=== PATIENT | male | born 1955 | race Caucasian/White ===

== ENCOUNTER 2023-05-23 17:19 | Inpatient (IN) | payer MEDICARE, SELFPAY ==
--- NOTE | ~2023-05-23 | XR_ITS ---
EXAMINATION: XR CHEST CLINICAL INFORMATION: Lower extremity edema COMPARISON: None available. TECHNIQUE: 2 views of the chest were obtained. FINDINGS: No significant abnormality is noted involving the heart, lungs, mediastinum, bony thorax or soft tissues. XR/XR chest 2V IMPRESSION: Unremarkable examination. No CHF.
--- NOTE | ~2023-05-23 | US_ITS ---
EXAMINATION: US VENOUS ULTRASOUND WITH DOPPLER LOWER EXTREMITY, BILATERAL CLINICAL INFORMATION: Bilateral leg edema. COMPARISON: None available. TECHNIQUE: Ultrasound of the deep veins is performed from the hip to the calf with compression sonography and color and pulse Doppler assessment. Spectral analysis with color-flow imaging is performed. FINDINGS: RIGHT: There is normal venous compression and respiratory variation and augmented flow. The visualized common femoral vein, superficial femoral vein, profunda femoral vein, popliteal vein, and the trifurcation region shows no evidence of deep venous thrombosis. There is no significant popliteal fossa cyst. The peroneal veins are not visualized secondary to body habitus. Partial visualization is made of scattered subcutaneous edema. LEFT: There is normal venous compression and respiratory variation and augmented flow. The visualized common femoral vein, superficial femoral vein, profunda femoral vein, popliteal vein, and the trifurcation region shows no evidence of deep venous thrombosis. There is no significant popliteal fossa cyst. Peroneal veins are not visualized secondary to body habitus. Partial visualization is made of scattered subcutaneous edema. If the patient's symptoms persist, followup ultrasound in 5 days 7 days might be of value to exclude proximal propagation from a non-visualized calf vein. US/US venous duplex LE BI IMPRESSION: *No evidence of deep venous thromboses within the left and right lower extremities. Of note the left and right calf veins are suboptimally visualized secondary to body habitus. *Partial visualization of bilateral lower extremity subcutaneous edema.
--- NOTE | 2023-05-23 17:32 | ED_ITS ---
HPI - General Adult General Chief complaint: GI Bleed Stated complaint: Black stools/?Ulcer Time Seen by Provider: 05/23/23 18:47 Source: patient and family Mode of arrival: ambulatory Limitations: no limitations History of Present Illness HPI narrative: 67-year-old male with a history of hypertension and chronic lower extremity swelling who presents emergency department for evaluation of 4 days of dark tarry stools. Patient states that he has been feeling tired and fatigued. He denied lightheadedness or dizziness. The patient has had chronic heel pain for approximately 3 months. He states he has been taking naproxen 220 mg every 8 hours as well as Tylenol. The family was concerned about the patient's dark stools and convince the patient apartment today for evaluation. Patient has no history of GERD, peptic ulcer disease or bleeding ulcer. He has no significant past surgical history. Patient drinks 4-5 beers per day. He denies history of delirium tremens or shakes / withdrawal symptoms when he stops drinking. Related Data Home Medications Medication Instructions Recorded Confirmed budesonide-formoterol HFA 160 2 puff inhalation BID 05/23/23 05/23/23 mcg-4.5 mcg/actuation aerosol inhaler (Symbicort) hydrochlorothiazide 25 mg tablet 25 mg PO DAILY 05/23/23 05/23/23 losartan 100 mg tablet 100 mg PO DAILY 05/23/23 05/23/23 Allergies Allergy/AdvReac Type Severity Reaction Status Date / Time lisinopril Allergy Rash Verified 05/23/23 17:32 From Augmentin Allergy Mild UNKNOWN Uncoded 05/23/23 17:32 [facility] Past Medical History [facility] Narrative: Past medical history: Hypertension. Surgical history: Vasectomy, deviated septum/nasoplasty social history: Patient does smoke cigarettes. He drinks 4-5 beers per day. He states he has never had any delirium tremens or shakes when he stops drinking. Denies drug use. Medical History (Updated 05/23/23 @ 21:36 by Augustine Reyes MD) Edema of both legs Essential hypertension Obesity Social History Social History Alcohol intake: current Alcohol intake frequency: 3 or more drinks per day Alcohol type: beer Patient Tobacco Use Status: Current everyday Tobacco user Smoked in Last 30 Days: Yes Advance Directives: No Advance Directives Information Provided: No Nutrition Risks: No Nutritional Risk Physical Exam ED Vital Signs: Vital Signs - 24 hr 05/23/23 17:33 05/23/23 18:00 05/23/23 18:51 Temperature 98.0 F 98 F Pulse Rate 97 Respiratory Rate 20 18 Blood Pressure 131/53 L 114/59 L Pulse Oximetry 96 95 Oxygen Delivery Method Room Air Room Air 05/23/23 20:17 Temperature 98.2 F Pulse Rate 99 Respiratory Rate 16 Blood Pressure 106/55 L Pulse Oximetry 92 Oxygen Delivery Method Room Air BMI result Body Mass Index 53.6 Vital signs were normal Exam: General: Awake, alert in no distress, weight 159.9 kg, BMI 53.6 kg Head: Normocephalic, atraumatic EENT: PERRL, Lids normal, sclera normal, conjunctiva normal, nose normal , ears normal, throat without erythema or exudates Neck: Supple, no adenopathy Lung: breath sounds symmetric, no wheezing, rales or rhonchi Chest: symmetric movement, nontender Heart: regular rate and rhythm, normal S1, S2 no murmurs or rubs Abdomen: soft, non-tender, nondistended, normal bowel sounds Rectal exam: No external hemorrhoids, good sphincter tone, stool was black and strongly Hemoccult positive. Back: no vertebral tenderness, no CVAT Extremities: Patient has large, symmetric, nonpitting edema Neuro: Awake, alert, oriented, normal speech, cranial nerves intact, moves all extremities symmetrically Psych: Pleasant, cooperative Course Course Course Narrative: This is a rapid medical exam: Additional HPI, ROS, PE not included below will be deferred to primary provider. Patient is a 67-year-old male presenting to the emergency department with complaint of black, tarry stool since . States that he has severe pain from heel spurs, and has been using at lease 8 tabs of 220mg naproxen daily, also 650mg of Tylenol multiple times per day for the past 3 mos. Has appt with PCP on 05/27 but states I couldn't wait. Denies abdominal pain, nausea, vomiting. Also reports bilat lower extremity swelling for years, was not started on any medications for this by PCP. Plan: labs, CXR Medications Administered Generic Name Dose Route Start Last Admin Trade Name Freq PRN Reason Stop Dose Admin Thiamine HCl 100 mg/ Sodium 101 mls @ 202 mls/hr 05/23/23 21:15 05/23/23 23:10 Chloride IV Infused DAILY HENRY Infusion Discontinued Medications Generic Name Dose Route Start Last Admin Trade Name Freq PRN Reason Stop Dose Admin Pantoprazole Sodium 80 mg 05/23/23 19:27 05/23/23 19:38 Pantoprazole Sodium 40 Mg/10 Ml Vial IVPUSH 05/23/23 19:28 80 mg ONCE ONE Administration Medical Decision Making Medical Decision Making MDM Narrative: 67-year-old male with a history of hypertension, daily alcohol use, taking naproxen 3 times a day for heel pain who presents emergency department for evaluation of 4 days of black stools and fatigue above his baseline. Vital signs were normal. Abdominal exam was nontender. Rectal exam did reveal dark black stool which was strongly Hemoccult positive. Differential diagnosis: ?Includes but is not limited to peptic ulcer disease, gastritis, gastric ulcer, duodenal ulcer, anemia, electrolyte abnormality Following evaluation was ordered: CBC, CMP, BNP, acetaminophen level, PT/INR, occult stool, chest x-ray two view, type and screen, Patient was initially treated with the following: IV insert, pantoprazole 80 mg IV Course: 1941 My impression patient's laboratory evaluation is as follows: WBC elevated 12,300. Macrocytic anemia with an H&H of 11.2 and 34.6 with an MCV of 100.3- suspect that the elevated MCV is secondary to his alcohol use disorder and anemia secondary to upper GI bleed. BUN was elevated at 41 with a normal creatinine of 0.76-again I suspect that the elevated BUN is due to upper GI bleed LFTs were normal. BNP was normal. Acetaminophen level was 6. At this time, I a concerned that the patient may have a significant upper GI bleed and required admission to trend his H&H and to get an urgent gastroenterology consult. I did discuss the patient's presentation over tiger text with the covering ship self defense system mk1 operator, Dr. Beal . She did agreed with admission and I put in a consult for her as well. I also discuss the patient's presentation over tiger text with the covering hospitalist, Dr. Jon Reyes and the patient will be admitted for further management. 22:53 Reported to large black bowel movements Patient 4 hours H&H was 9.8 and 29.6 compared to 12.2 and 34.6 which is a significant drop suggested the patient had approximately a 1-2 units blood loss in 4 hours. I did discuss this with the covering hospitalist and the patient was ordered to get 2 units of packed red blood cell over 2 hours Admission/Observation Consideration of admission/observation: Escalation of care including admission/observation considered Consult Healthcare Provider Management of the patient was discussed with: Hospitalist and Mandrel Press Hand (Sourcing Consultant) Lab Data MDM Lab Attestation statement: I reviewed the patient's lab results. 05/23/23 21:54 05/23/23 17:49 Labs: Lab Results 05/23/23 05/23/23 Range/Units 17:49 19:11 WBC 12.3 H (4.8-10.8) X10*3/uL RBC 3.45 L (4.60-5.80) X10*6/uL Hgb 11.2 L (14.0-18.0) g/dl Hct 34.6 L (42.0-52.0) % MCV 100.3 H (80.0-98.0) fL MCH 32.5 (27.0-33.0) pg MCHC 32.4 (31.0-36.0) g/dl RDW 13.5 (11.0-16.0) % Plt Count 258 (160-400) X10*3/uL MPV 10.1 (9.4-12.4) fL Immature Gran % (Auto) 1.0 H (0.0-0.4) % Neut % (Auto) 70.6 (45-73) % Lymph % (Auto) 14.3 L (20-40) % Bacon % (Auto) 11.3 H (2-11) % Eos % (Auto) 2.0 (0-4) % Baso % (Auto) 0.8 (0-2) % Lymph # (Auto) 1.8 (1.2-4.9) X10*3/uL Bacon # (Auto) 1.4 H (0.1-1.2) X10*3/uL Eos # (Auto) 0.3 (0.0-0.4) X10*3/uL Baso # (Auto) 0.1 (0.0-0.2) X10*3/uL Abs Immat Gran (auto) 0.12 H (0.00-0.03) X10*3/uL Absolute Neuts (auto) 8.7 H (2.0-8.3) x10*3/uL Absolute Nucleated RBC 0.000 (0.0-0.012) X10*3/uL Nucleated RBC % (auto) 0.0 (0.0-0.2) /100WBC PT 12.1 (11.1-13.3) SEC INR 1.0 (0.9-1.1) Sodium 138 (135-145) mmol/L Potassium 4.4 (3.3-5.1) mmol/L Chloride 103 (96-108) mmol/L Carbon Dioxide 27 (22-29) mmol/L Anion Gap 12 (12-20) BUN 41 H (9-16) mg/dL Creatinine 0.76 (0.5-1.4) mg/dL Estim Creat Clear Calc 143.9 Estimated GFR > 60 Random Glucose 90 (60-115) mg/dL Calcium 9.3 (8.4-10.2) mg/dL Total Bilirubin 0.5 (0.0-1.0) mg/dL AST 21 (5-37) U/L ALT 24 (0-40) U/L Alkaline Phosphatase 87 (39-117) U/L B-Natriuretic Peptide 41 (<100) pg/mL Total Protein 6.9 (6.5-8.0) g/dL Albumin 3.8 (3.5-5.0) g/dL Stool Occult Blood POSITIVE (NEGATIVE) Acetaminophen 6 (<30) mcg/mL Independent Interpretation I performed an independent interpretation of an: Plain X-Ray Interpretation: My independent interpretation patient's two view chest x-ray is as follows: No acute disease Radiology Impression Discussion of test interpretation with radiology: I have reviewed the radiologist's reading. Radiologist Impression: XR chest 2V IMPRESSION: Unremarkable examination. No CHF. Dictated By: Shashank Cardenas MD Independent Historian Clinical information obtained from an independent historian. History obtained from or confirmed by: Spouse Chronic Conditions Patient?s care impacted by: Hypertension and Other (Alcohol use disorder) Critical Care Time Critical Care Time Critical Care Time: Yes Total Critical Care Time: 75 Attestation: Critical Care: The patient was critically ill with a high probability of imminent or life threatening deterioration. I spent greater than 30 minutes of discontinuous time evaluating the patient,delivering critical care at the bedside, discussing and evaluating pertinent data with consultants. Critical care time does not include time spent performing separately billable procedures or teaching. Total time spent performing critical care was 35 minutes. Discharge Plan Discharge Clinical Impression: Acute upper gastrointestinal bleeding, Dark stools, Alcohol use disorder Anemia Qualifiers: Anemia type: unspecified type Qualified Code(s): D64.9 - Anemia, unspecified Patient Disposition: Admitted As Inpatient
[2023-05-23 17:33] VITALS: BP 131/53; PULSE 97; RESP 20; TEMP 36.7; O2SAT 96; BMI 53.6
[2023-05-23 17:55] LABS: MANUAL DIFF FLAG NO
[2023-05-23 18:00] VITALS: RESP 18; TEMP 36.6; O2SAT 95
[2023-05-23 18:01] LABS: Prothrombin Time 12.1 SEC (11.1-13.3)
[2023-05-23 18:12] LABS: Acetaminophen LAB 6 mcg/mL (<30); Alanine Aminotransferase 24 U/L (0-40); Albumin Level 3.8 g/dL (3.5-5.0); Alkaline Phosphatase 87 U/L (39-117); Anion Gap 12 (12-20); Aspartate Amino Transferase 21 U/L (5-37); Basophils Absolute Auto 0.1 X10*3/uL (0.0-0.2); Basophils Percent Auto 0.8 % (0-2); Bilirubin Total 0.5 mg/dL (0.0-1.0); Blood Urea Nitrogen 41 mg/dL (9-16); Calcium 9.3 mg/dL (8.4-10.2); Carbon Dioxide 27 mmol/L (22-29); Chloride 103 mmol/L (96-108); Creatinine Clr Calc Pharmacy 143.9; Eosinophils Absolute Auto 0.3 X10*3/uL (0.0-0.4); Estimated Glomerular Filt Rate > 60; Glucose Random 90 mg/dL (60-115); Hematocrit 34.6 % (42.0-52.0); Hemoglobin 11.2 g/dl (14.0-18.0); Imm Gran Abs Auto 0.12 X10*3/uL (0.00-0.03); Lymphocytes Absolute Auto 1.8 X10*3/uL (1.2-4.9); Lymphocytes Percent Auto 14.3 % (20-40); Mean Corpuscular HGB Conc 32.4 g/dl (31.0-36.0); Mean Corpuscular Hemoglobin 32.5 pg (27.0-33.0); Mean Corpuscular Volume 100.3 fL (80.0-98.0); Mean Platelet Volume 10.1 fL (9.4-12.4); Monocytes Absolute Auto 1.4 X10*3/uL (0.1-1.2); Monocytes Percent Auto 11.3 % (2-11); Neutrophils Absolute Auto 8.7 x10*3/uL (2.0-8.3); Neutrophils Percent Auto 70.6 % (45-73); Platelet Count 258 X10*3/uL (160-400); Potassium 4.4 mmol/L (3.3-5.1); Red Blood Count 3.45 X10*6/uL (4.60-5.80); Red Cell Distribution Width 13.5 % (11.0-16.0); Sodium 138 mmol/L (135-145); Total Protein 6.9 g/dL (6.5-8.0); White Blood Count 12.3 X10*3/uL (4.8-10.8)
[2023-05-23 18:16] LABS: B Type Natriuretic Peptide 41 pg/mL (<100)
[2023-05-23 18:51] VITALS: BP 114/59
[2023-05-23 19:24] LABS: OBS Int Ctl Valid YES; OBS1 POSITIVE (NEGATIVE)
[2023-05-23] MEDS: Pantoprazole Sodium 40 MG/10 ML VIAL 80 MG IVPUSH (19:38)
[2023-05-23 20:17] VITALS: BP 106/55; PULSE 99; RESP 16; TEMP 36.8; O2SAT 92
--- NOTE | 2023-05-23 20:57 | P.HPHOSP_ITS ---
History of Present Illness Date of Service: 05/23/23 Attending physician on admission: Augustine Reyes Chief Complaint: Black stools Feliberto Monterroso is a 67 years old man with past medical history significant for essential hypertension, COPD and obesity presents to the emergency department complaining of black stools since . He has been taking multiple doses NSAIDs over the last months for left heel pain. Denies use of blood thinners. He denied any associated abdominal pain, nausea, vomiting, dizziness or shortness breath. He also denied chest pain. He does have marked edema to lower extremities chronically. He denied any history heart failure, GI bleeding/PUD or liver disease. He does abuse alcohol -drinks 4-5 alcoholic beverage, smoke tobacco -about half pack daily. Denies illicit drug use. In the ED, he was found to have stable vital signs. Workup is remarkable for leukocytosis, anemia (Hgb 11.2) and elevated BUN. Creatinine is 0.76. BNP is normal. There are no electrolyte imbalances or acidosis. CXR is negative. ED tx: Pantoprazole 80 mg IV. Review of Systems 2 Review of Systems: All 12 systems were reviewed and normal except as noted in HPI. [facility] Medical History (Updated 05/23/23 @ 21:36 by Augustine Reyes MD) Edema of both legs Essential hypertension Obesity Social History Alcohol intake: current Alcohol intake frequency: 3 or more drinks per day Alcohol type: beer Smoked in Last 30 Days: Yes Advance Directives: No Advance Directives Information Provided: No Meds Allergies Allergy/AdvReac Type Severity Reaction Status Date / Time lisinopril Allergy Rash Verified 05/23/23 17:32 From Augmentin Allergy Mild UNKNOWN Uncoded 05/23/23 17:32 Active Medications: Current Medications Sodium Chloride (Ns) 1,000 mls @ 100 mls/hr IVCONT .Q10H [facility] Losartan Potassium (Losartan Potassium 50 Mg Tablet) 100 mg PO DAILY [facility]ENRY; Protocol Pantoprazole Sodium (Pantoprazole Sodium 40 Mg/10 Ml Vial) 40 mg IVPUSH Q12H [facility]RY Sodium Chloride (0.9 % Sodium Chloride Flush 3 Ml Syringe) 3 ml IVFLUSH QSHIFT [facility] Home Medications Medication Instructions Recorded Confirmed Last Taken Type budesonide-formoterol HFA 160 2 puff inhalation BID 05/23/23 05/23/23 Unknown History mcg-4.5 mcg/actuation aerosol inhaler (Symbicort) hydrochlorothiazide 25 mg tablet 25 mg PO DAILY 05/23/23 05/23/23 Unknown History losartan 100 mg tablet 100 mg PO DAILY 05/23/23 05/23/23 Unknown History Physical Exam 2 Vital Signs and Narrative: Vital Signs: Last Vital Signs Temp 98.2 F 05/23/23 20:17 Pulse 99 05/23/23 20:17 Resp 16 05/23/23 20:17 BP 106/55 L 05/23/23 20:17 Pulse Ox 92 05/23/23 20:17 O2 Del Method Room Air 05/23/23 20:17 BMI result Body Mass Index 53.6 Constitutional - Awake and Alert, No apparent distress. Pleasant. Cooperative. Obese. HEENT - Pupils equally round. Normal sclerae. Heart - S1S2, RRR. (+) murmur. Lungs - Normal lung expansion, Normal respiratory effort, No respiratory distress, CTA bilaterally Abdomen - nontender Extremities - Marked edema to lower extremity (hardening skin). Skin - Warm/Dry Neurological - Alert & oriented x3. No acute focal weakness. Normal speech. Psychological - Appropriate affect Results Labs 05/23/23 17:49 05/23/23 17:49 Labs: Laboratory Results - last 24 hr 05/23/23 05/23/23 17:49 19:11 MCV 100.3 H MCH 32.5 MCHC 32.4 RDW 13.5 Plt Count 258 MPV 10.1 Immature Gran % (Auto) 1.0 H Neut % (Auto) 70.6 Lymph % (Auto) 14.3 L Hill % (Auto) 11.3 H Eos % (Auto) 2.0 Baso % (Auto) 0.8 Lymph # (Auto) 1.8 Hill # (Auto) 1.4 H Eos # (Auto) 0.3 Baso # (Auto) 0.1 Abs Immat Gran (auto) 0.12 H Absolute Neuts (auto) 8.7 H Absolute Nucleated RBC 0.000 Nucleated RBC % (auto) 0.0 PT 12.1 INR 1.0 Anion Gap 12 Estim Creat Clear Calc 143.9 Estimated GFR > 60 Random Glucose 90 Calcium 9.3 Total Bilirubin 0.5 AST 21 ALT 24 Alkaline Phosphatase 87 B-Natriuretic Peptide 41 Total Protein 6.9 Albumin 3.8 Stool Occult Blood POSITIVE Acetaminophen 6 Imaging Radiologist's Impressions: Impressions Chest X-Ray 05/23/23 17:46 IMPRESSION: Unremarkable examination. No CHF. Assessment and Plan (1) Alcohol use disorder: Status: Acute (2) Dark stools: Status: Acute (3) Anemia: Qualifiers: Anemia type: unspecified type Qualified Code(s): D64.9 - Anemia, unspecified Status: Acute (4) Acute upper gastrointestinal bleeding: Status: Acute (5) Obesity: Qualifiers: Obesity type: due to excess calories Body mass index: BMI 50.0-59.9 S erious obesity comorbidity presence: unspecified whether serious comorbidity present Obesity classification: adult class 3 (BMI >= 40) Qualified Code(s): E66.01 - Morbid (severe) obesity due to excess calories; Z68.43 - Body mass index [BMI] 50.0-59.9, adult Status: Acute (6) Essential hypertension: Status: Acute (7) Edema of both legs: Status: Acute Plan Feliberto Monterroso is a 67 years old man admitted with: * Gastrointestinal bleeding. Admit to hospitalist service. Keep NPO. IV fluids. Continue treatment with Protonix 40 mg IV twice daily. Continue to monitor H&H. Transfuse PRBC as needed. GI consult. * Hypertension. Continue losartan. Hydrochlorothiazide on hold to avoid dehydration (in the setting of GI bleeding). * COPD. Continue Symbicort (or alternative). * Morbid obesity. BMI 53.6 kg/m2. Weight loss. * Alcohol abuse. [facility] protocol. Folic acid and multivitamins. Patient needs to abstain for alcohol. * Marked bilateral leg edema. Likely due to obesity. BNP, albumin, creatinine and LFTs are normal. Patient said he is unable to elevate legs. Will consider tx with Lasix when active problems resolve. * Tobacco dependence. Nicotine gums as needed. DVT prophylaxis: SCDs Code status: Full Patient will need hospitalization for at least 2 midnights for GI bleeding evaluation and management with close monitoring of symptoms, serial H&H, IV anti reflux meds and evaluation by subspecialty for possible EGD. Quality Stroke Does the patient have a stroke diagnosis?: No VTE Prior VTE?: No VTE Risk Level:: Medical - moderate - high VTE Device Contraindication: N/A - Device Ordered VTE Drug Contraindication: Treatment Not Indicated
[2023-05-23 22:07] LABS: Hematocrit 29.6 % (42.0-52.0); Hemoglobin 9.8 g/dl (14.0-18.0)
[2023-05-23] MEDS: Thiamine HCL 100 MG in 0.9 % Sodium Chloride 100 ML 202 MG IV (22:38)
[2023-05-23 22:51] VITALS: BP 93/42; PULSE 100; RESP 16; TEMP 36.9; O2SAT 92
--- NOTE | 2023-05-23 23:47 | PC.NURSE ---
This RN attempted to verify 1 unit of PRBC bag for infusion in presence of VEL Mon. There is dark discoloration noted in the bag. Blood bank contacted and notified, 1 unit of PRBC's sent back to blood bank.
[2023-05-24] VITALS (16 sets, daily range): BP systolic 88–122; BP diastolic 24–63; PULSE 86–107; RESP 16–25; TEMP 36.1–37.1; O2SAT 84–98
--- NOTE | 2023-05-24 00:33 | PC.NURSE ---
Blood transfusion of 1 unit of PRBC's initiated via 20 G IV line in L AC, patient tolerating infusion well with no adverse reactions noted.
--- NOTE | 2023-05-24 04:34 | PC.NURSE ---
Patient transfused with 2 units of PRBC's, tolerated well, BP's remain oft 97/43-108/46, P 88-99, O2 Sat 96-98% RA. Dr. Webb updated.
[2023-05-24 05:54] LABS: Hematocrit 35.2 % (42.0-52.0); Hemoglobin 11.7 g/dl (14.0-18.0)
[2023-05-24] MEDS: 0.9 % Sodium Chloride 1,000 ML 100 ML IVCONT (06:04)
[2023-05-24 06:07] LABS: Alanine Aminotransferase 22 U/L (0-40); Albumin Level 3.7 g/dL (3.5-5.0); Alkaline Phosphatase 76 U/L (39-117); Anion Gap 11 (12-20); Aspartate Amino Transferase 22 U/L (5-37); Bilirubin Total 1.5 mg/dL (0.0-1.0); Blood Urea Nitrogen 48 mg/dL (9-16); Calcium 9.3 mg/dL (8.4-10.2); Carbon Dioxide 27 mmol/L (22-29); Chloride 104 mmol/L (96-108); Creatinine Clr Calc Pharmacy 117.6; Estimated Glomerular Filt Rate > 60; Glucose Random 96 mg/dL (60-115); Potassium 3.9 mmol/L (3.3-5.1); Sodium 138 mmol/L (135-145); Total Protein 6.5 g/dL (6.5-8.0)
[2023-05-24 06:50] LABS: Folate 7.3 ng/mL (> or = 4.0); Vitamin B12 432 pg/mL (200-900)
--- NOTE | 2023-05-24 08:04 | PHA.MEDREC ---
Pharmacy Consult ? Medication Reconciliation Pharmacy has completed the medication reconciliation. Spoke with patient in the ED. Patient was able to list all medications. Patient states he was taking lots of Naproxen but stopped on 05/21/23 when he found blood in his stool and is now taking tylenol.
[2023-05-24] MEDS: Fluticasone/Vilanterol 200/25 BLST.W.DEV 1 PUFF INHALE (08:20)
--- NOTE | 2023-05-24 09:07 | PC.NURSE ---
from home, reports 4 days of dark tarry stools, feeling tired and fatigued, denied lightheadedness/dizziness, has chronic heel pain x3 months, has been taking naproxen 220 mg every 8 hours and Tylenol, hx COPD-no home O2. Hgb-11.2 Hct-34.6 Got 2u PBRC -Hct=11.7 Hct=35.2. NS 75 ml/h. 20 LAC. NPO since midnight, Endoscopy today. A+O x3. Sleeps in recliner. Pt being transported to room 478 by clinical trial educator.
[2023-05-24] MEDS: Thiamine HCL 100 MG in 0.9 % Sodium Chloride 100 ML 202 MG IV (10:14)
[2023-05-24] MEDS: Pantoprazole Sodium 40 MG/10 ML VIAL IVPUSH ×2 (10:14→20:10)
--- NOTE | 2023-05-24 10:37 | P.CONAN_ITS ---
HPI - Anesthesia Eval Consult details Narrative: GI bleed PMFSH Active Problems Active Problems: All Active Problems (Updated 05/23/23 @ 21:36 by Augustine Reyes MD) Edema of both legs (Acute) Essential hypertension (Acute) Obesity (Acute) Alcohol use disorder (Acute) Dark stools (Acute) Anemia (Acute) Acute upper gastrointestinal bleeding (Acute) Past Medical History Medical History (Updated 05/23/23 @ 21:36 by Augustine Reyes MD) Edema of both legs Essential hypertension Obesity Family History Family history of problems with anesthesia: No Surgical History History of Problems with Anesthesia: No Social History Social History Household Members: None Housing: Apartment Do you presently have visiting nurse or other home services: No Alcohol intake: current Alcohol intake frequency: 3 or more drinks per day Alcohol type: beer Patient Tobacco Use Status: Current everyday Tobacco user Tobacco use type: Cigarette Meds Allergies Allergy/AdvReac Type Severity Reaction Status Date / Time lisinopril Allergy Rash Verified 05/23/23 17:32 From Augmentin Allergy Mild UNKNOWN Uncoded 05/23/23 17:32 Active Medications: Current Medications Albuterol Sulfate (Albuterol Sulfate 90 Mcg 8 Gm Inhaler) 2 puff INHALE Q4H PRN PRN Reason: Shortness Of Breath Fluticasone/Vilanterol (Fluticasone/Vilanterol 200/25 Blst.W.Dev) 1 puff INHALE RDAILY [facility] Last Admin: 05/24/23 08:20 Dose: 1 puff Folic Acid (Folic Acid 1 Mg Tablet) 1 mg PO DAILY [facility] Last Admin: 05/24/23 09:51 Dose: Not Given Sodium Chloride (Ns) 1,000 mls @ 100 mls/hr IVCONT .Q10H [facility] Last Admin: 05/24/23 06:04 Dose: 100 mls/hr Thiamine HCl 100 mg/ Sodium (Chloride) 101 mls @ 202 mls/hr IV DAILY [facility] Last Admin: 05/24/23 10:14 Dose: 202 mls/hr Losartan Potassium (Losartan Potassium 50 Mg Tablet) 50 mg PO DAILY [facility]; Protocol Last Admin: 05/24/23 09:51 Dose: Not Given Multivitamins/Vitamin C (Multivitamin Tablet) 1 tab PO DAILY [facility] Last Admin: 05/24/23 09:51 Dose: Not Given Nicotine Polacrilex (Nicotine Polacrilex 2 Mg Gum) 2 mg BUCCAL Q2H PRN PRN Reason: Nicotine Cravings Pantoprazole Sodium (Pantoprazole Sodium 40 Mg/10 Ml Vial) 40 mg IVPUSH Q12H [facility] Last Admin: 05/24/23 10:14 Dose: 40 mg Sodium Chloride (0.9 % Sodium Chloride Flush 3 Ml Syringe) 3 ml IVFLUSH QSHIFT [facility] Last Admin: 05/24/23 09:51 Dose: Not Given Home Medications Medication Instructions Recorded Confirmed Last Taken Type budesonide-formoterol HFA 160 2 puff inhalation BID 05/23/23 05/23/23 Unknown History mcg-4.5 mcg/actuation aerosol inhaler (Symbicort) hydrochlorothiazide 25 mg tablet 25 mg PO DAILY 05/23/23 05/23/23 Unknown History losartan 100 mg tablet 100 mg PO DAILY 05/23/23 05/23/23 Unknown History acetaminophen 325 mg tablet 650 mg PO Q4H PRN Pain (Scale 05/24/23 05/24/23 Unkn own History Score 1-3) albuterol sulfate 90 mcg/actuation 2 puff inhalation Q4-6H PRN 05/24/23 05/24/23 Unknown History aerosol inhaler Shortness Of Breath Exam Height,Weight and Vital Signs: Height 5 ft 8 in Weight 159.9 kg Last Vital Signs Temp 96.9 F 05/24/23 08:00 Pulse 98 05/24/23 08:22 Resp 25 H 05/24/23 08:22 BP 93/52 L 05/24/23 08:00 Pulse Ox 94 05/24/23 08:00 O2 Del Method Room Air 05/24/23 08:00 Pertinent Lab Results Pertinent Lab Results: Laboratory Tests 05/23/23 05/23/23 05/23/23 17:49 19:11 21:54 WBC 12.3 H RBC 3.45 L Hgb 11.2 L 9.8 L Hct 34.6 L 29.6 L MCV 100.3 H MCH 32.5 MCHC 32.4 RDW 13.5 Plt Count 258 MPV 10.1 Immature Gran % (Auto) 1.0 H Neut % (Auto) 70.6 Lymph % (Auto) 14.3 L [place] % (Auto) 11.3 H Eos % (Auto) 2.0 Baso % (Auto) 0.8 Lymph # (Auto) 1.8 [place] # (Auto) 1.4 H Eos # (Auto) 0.3 Baso # (Auto) 0.1 Abs Immat Gran (auto) 0.12 H Absolute Neuts (auto) 8.7 H Absolute Nucleated RBC 0.000 Nucleated RBC % (auto) 0.0 PT 12.1 INR 1.0 Sodium 138 Potassium 4.4 Chloride 103 Carbon Dioxide 27 Anion Gap 12 BUN 41 H Creatinine 0.76 Estim Creat Clear Calc 143.9 Estimated GFR > 60 Random Glucose 90 Calcium 9.3 Magnesium Total Bilirubin 0.5 AST 21 ALT 24 Alkaline Phosphatase 87 B-Natriuretic Peptide 41 Total Protein 6.9 Albumin 3.8 Vitamin B12 Folate Stool Occult Blood POSITIVE Acetaminophen 6 Blood Type Antibody Screen Crossmatch 05/23/23 05/24/23 22:29 05:49 WBC RBC Hgb 11.7 L Hct 35.2 L MCV MCH MCHC RDW Plt Count MPV Immature Gran % (Auto) Neut % (Auto) Lymph % (Auto) [place] % (Auto) Eos % (Auto) Baso % (Auto) Lymph # (Auto) [place] # (Auto) Eos # (Auto) Baso # (Auto) Abs Immat Gran (auto) Absolute Neuts (auto) Absolute Nucleated RBC Nucleated RBC % (auto) PT INR Sodium 138 Potassium 3.9 Chloride 104 Carbon Dioxide 27 Anion Gap 11 L BUN 48 H Creatinine 0.93 Estim Creat Clear Calc 117.6 Estimated GFR > 60 Random Glucose 96 Calcium 9.3 Magnesium 2.0 Total Bilirubin 1.5 H AST 22 ALT 22 Alkaline Phosphatase 76 B-Natriuretic Peptide Total Protein 6.5 Albumin 3.7 Vitamin B12 432 Folate 7.3 Stool Occult Blood Acetaminophen Blood Type O Positive Antibody Screen NEGATIVE Crossmatch See Detail Airway Mallampati Class: II TM Dist: >3cm Neck ROM: Full Loose/Missing/Broken Teeth: No Heart: RRR Lungs: CTA Assessment and Plan Assessment Anesthesia Assessment: Anesthesia Plan Discussed and Chart Reviewed Final Anesthetic Review Family History of Problems with Anesthesia: No History of Problems with Anesthesia: No NPO: Yes ASA Class: III and Emergency Final Preanesthetic Review: No Changes in Pt Med Stat, Meds/Allgs Chart Reviewed, Consent Obtained/Reviewed and Anes Risks/Benef Reviewed Patient Risk: High Procedure Risk: Low Anesthetic Plan Anesthetic Plan: MAC: Disposition: Standard PACU
--- NOTE | 2023-05-24 10:54 | PM.GICN ---
History of Present Illness Data of Consult Service Date: 05/24/23 Requesting physician: Lavell Lipscomb Primary Care Provider: Unknown Physician HPI Reason for consult: UGIB This is a 67-year-old gentleman with past medical history morbid obesity BMI of 53, alcohol use disorder, hypertension, COPD, smoking, who presented to the hospital for multiple episodes of melena. Patient reports that he has been taking at least 8 pills of naproxen every day for the past few months for painful heel spurs. On , he started noticing epigastric discomfort with 2 episodes of loose black stools, which progressed the next day. He was therefore advised by his family members to come to the ER. On arrival to the ER, his pressures were soft. Initial hemoglobin was 11.2 which then dropped further to 9.8. BUN to creatinine ratio was high. He was transfused 2u PRBC overnight and started on IV protonix. In addition, patient also smokes 10-15 cigarettes a day, and drinks alcohol 4-5 drinks every day. Platelet count normal. Review of Systems Review of Systems: Yes all other systems are reviewed and are negative [facility] Past Medical History Medical History (Updated 05/24/23 @ 11:34 by Louann Beal MD) Edema of both legs Essential hypertension Obesity Social History Social History Household Members: None Housing: Apartment Do you presently have visiting nurse or other home services: No Alcohol intake: current Alcohol intake frequency: 3 or more drinks per day Alcohol type: beer Patient Tobacco Use Status: Current everyday Tobacco user Tobacco use type: Cigarette Meds Allergies Allergy/AdvReac Type Severity Reaction Status Date / Time lisinopril Allergy Rash Verified 05/23/23 17:32 From Augmentin Allergy Mild UNKNOWN Uncoded 05/23/23 17:32 Active Medications: Current Medications Albuterol Sulfate (Albuterol Sulfate 90 Mcg 8 Gm Inhaler) 2 puff INHALE Q4H PRN PRN Reason: Shortness Of Breath Fluticasone/Vilanterol (Fluticasone/Vilanterol 200/25 Blst.W.Dev) 1 puff INHALE RDAILY [facility] Last Admin: 05/24/23 08:20 Dose: 1 puff Folic Acid (Folic Acid 1 Mg Tablet) 1 mg PO DAILY [facility] Last Admin: 05/24/23 09:51 Dose: Not Given Sodium Chloride (Ns) 1,000 mls @ 100 mls/hr IVCONT .Q10H [facility] Last Admin: 05/24/23 06:04 Dose: 100 mls/hr Thiamine HCl 100 mg/ Sodium (Chloride) 101 mls @ 202 mls/hr IV DAILY [facility] Last Admin: 05/24/23 10:14 Dose: 202 mls/hr Losartan Potassium (Losartan Potassium 50 Mg Tablet) 50 mg PO DAILY [facility]; Protocol Last Admin: 05/24/23 09:51 Dose: Not Given Multivitamins/Vitamin C (Multivitamin Tablet) 1 tab PO DAILY [facility] Last Admin: 05/24/23 09:51 Dose: Not Given Nicotine Polacrilex (Nicotine Polacrilex 2 Mg Gum) 2 mg BUCCAL Q2H PRN PRN Reason: Nicotine Cravings Ondansetron HCl (Ondansetron Hcl 4 Mg/2 Ml Vial) 4 mg IVPUSH ONCE PRN PRN Reason: Nausea and Vomiting Pantoprazole Sodium (Pantoprazole Sodium 40 Mg/10 Ml Vial) 40 mg IVPUSH Q12H [facility] Last Admin: 05/24/23 10:14 Dose: 40 mg Sodium Chloride (0.9 % Sodium Chloride Flush 3 Ml Syringe) 3 ml IVFLUSH QSHIFT [facility] Last Admin: 05/24/23 09:51 Dose: Not Given Home Medications Medication Instructions Recorded Confirmed Last Taken Type budesonide-formoterol HFA 160 2 puff inhalation BID 05/23/23 05/23/23 Unknown History mcg-4.5 mcg/actuation aerosol inhaler (Symbicort) hydrochlorothiazide 25 mg tablet 25 mg PO DAILY 05/23/23 05/23/23 Unknown History losartan 100 mg tablet 100 mg PO DAILY 05/23/23 05/23/23 Unknown History acetaminophen 325 mg tablet 650 mg PO Q4H PRN Pain (Scale 05/24/23 05/24/23 Unknown History Score 1-3) albuterol sulfate 90 mcg/actuation 2 puff inhalation Q4-6H PRN 05/24/23 05/24/23 Unknown History aerosol inhaler Shortness Of Breath Physical Exam Vital Signs: Vital Signs: Last Vital Signs Temp 96.9 F 05/24/23 08:00 Pulse 98 05/24/23 08:22 Resp 25 H 05/24/23 08:22 BP 93/52 L 05/24/23 08:00 Pulse Ox 94 05/24/23 08:00 O2 Del Method Room Air 05/24/23 08:00 BMI result Body Mass Index 53.6 Gen appear: with obesity HEENT: nonicteric, no cervical lymphadenopathy Chest: CTA CVS: Regular S1/S2 Abd: soft, tender, nondistended Ext: +++ peripheral edema with venous stasis changes Neuro: A/Ox3, noted to move all extremities spontaneously Psych: interacting appropriately Results Labs 05/24/23 05:49 05/24/23 05:49 Labs: Short CBC 05/23/23 05/23/23 05/24/23 Range/Units 17:49 21:54 05:49 WBC 12.3 H (4.8-10.8) X10*3/uL Hgb 11.2 L 9.8 L 11.7 L (14.0-18.0) g/dl Hct 34.6 L 29.6 L 35.2 L (42.0-52.0) % Plt Count 258 (160-400) X10*3/uL BMP 05/23/23 05/24/23 17:49 05:49 Sodium 138 138 Potassium 4.4 3.9 Chloride 103 104 Carbon Dioxide 27 27 BUN 41 H 48 H Creatinine 0.76 0.93 Calcium 9.3 9.3 Liver Function 05/23/23 05/24/23 Range/Units 17:49 05:49 Total Bilirubin 0.5 1.5 H (0.0-1.0) mg/dL AST 21 22 (5-37) U/L ALT 24 22 (0-40) U/L Alkaline Phosphatase 87 76 (39-117) U/L Albumin 3.8 3.7 (3.5-5.0) g/dL Assessment and Plan (1) Acute upper gastrointestinal bleeding: Status: Acute (2) Anemia: Qualifiers: Anemia type: unspecified type Qualified Code(s): D64.9 - Anemia, unspecified Status: Acute (3) Obesity: Qualifiers: Obesity type: due to excess calories Obesity classification: adult class 3 (BMI >= 40) Serious obesity comorbidity presence: unspecified whether serious comorbidity present Body mass index: BMI 50.0-59.9 Qualified Code(s): E66.01 - Morbid (severe) obesity due to excess calories; Z68.43 - Body mass index [BMI] 50.0-59.9, adult Status: Acute (4) Alcohol use disorder: Status: Acute (5) Tobacco use disorder: Status: Acute Plan Has acute anemia likely from upper GI bleeding. Highly suspect PUD with risk factors being NSAID and tobacco use. Will plan for EGD today. Mod to high risk of periprocedure complications due to morbid obesity reviewed with the pt. Plan: - keep patient NPO - ensure at least 2 large bore IV access at all times - monitor CBC at least twice a day - transfuse for hemoglobin less than 7, or if patient is symptomatic - EGD today - continue IV Protonix - patient was counseled on limiting NSAID use. Tobacco and alcohol use cessation. Thank you for allowing me to participate in his care. Please do not hesitate to reach out for any questions or concerns Procedures Date of Service Date of Service: 05/24/23
--- NOTE | 2023-05-24 11:37 | P.OP_ITS ---
Operative Note Operative Note Date of Service: 05/24/23 Narrative: Procedure: Esophagogastroduodenoscopy Endoscopist: Louann Beal MD Indication: UGIB Anesthesia Provider: Dr Barber Brizuela Anesthesia Type: MAC ?? EGD Procedure:?? The procedure, indications, preparation and potential complications were reviewed with the patient, who indicated understanding and gave written informed consent to proceed. A physical exam was performed. The endoscope was introduced through the mouth, and advanced to the second part of duodenum. The mucosa was carefully examined on slow withdrawal of the endoscope. The patient tolerated the procedure well. There were no immediate complications.? ? EGD Findings:? * Esophagus:? Normal mucosa noted in the entire esophagus. The Z line was at 40 cm and irregular to 38 cm. Biopsies were deferred in favor of limiting anesthesia time. * Stomach:? Abnormal boggy mucosa was noted just below GE junction in the cardia. Cold forceps biopsies were taken for histology. Multiple erosions and x2 small clean based ulcers measuring 5 mm were noted in the antrum. * Duodenum:? A large 12 mm ulcer with visible vessel was noted in the anterior bulb. Another clean based 8 mm ulcer was noted in the posterior bulb. Additional intervention: 2 cc of epinephrine was injected around the edges of the large duodenal ulcer. Gold probe cautery was then applied. The ulcer bed was then closed off with application of a Resolution 360 endoclip and a Resolution 360 ultra clip. ? EGD Impressions:? * Irregular Z line suspicious for BE * Abnormal cardia mucosa (biopsy) * Gastritis * Gastric ulcers * Nate Class II A duodenal ulcer (epi, cautery, endoclip x 2) * Duodenitis Recommendations:?? * Since this is a high risk ulcer for rebleeding, recommend continuing IV protonix for at least 72h from the intervention i.e till 3/13 am. * Thereafter can be switched to omeprazole 40 mg BID x 4 weeks and then 20mg once daily x 4 weeks. * Avoid NSAIDs * Smoking and etOH cessation counseling * Repeat EGD in 8 weeks to document healing of ulcers and to biopsy BE appearing mucosa Above has been reviewed with the patient.
--- NOTE | 2023-05-24 12:28 | HO.PM.IMPN ---
Subjective Subjective Date of Service: 05/24/23 Physical Exam Vital Signs: Vital Signs: Last Vital Signs Temp 97.1 F 05/24/23 12:23 Pulse 92 05/24/23 12:23 Resp 20 05/24/23 12:23 BP 112/54 L 05/24/23 12:23 Pulse Ox 93 05/24/23 12:23 O2 Del Method Room Air 05/24/23 12:23 BMI result Body Mass Index 53.6 Objective Data Active Medications Albuterol Sulfate (Albuterol Sulfate 90 Mcg 8 Gm Inhaler) 2 puff INHALE Q4H PRN PRN Reason: Shortness Of Breath Fluticasone/Vilanterol (Fluticasone/Vilanterol 200/25 Blst.W.Dev) 1 puff INHALE RDAILY [facility] Last Admin: 05/24/23 08:20 Dose: 1 puff Documented By: FADI Folic Acid (Folic Acid 1 Mg Tablet) 1 mg PO DAILY [facility] Last Admin: 05/24/23 09:51 Dose: Not Given Documented By: CHINTAN Non-Admin Reason: NPO Sodium Chloride (Ns) 1,000 mls @ 100 mls/hr IVCONT .Q10H [facility] Last Admin: 05/24/23 06:04 Dose: 100 mls/hr Documented By: THERESA Thiamine HCl 100 mg/ Sodium (Chloride) 101 mls @ 202 mls/hr IV DAILY [facility] Last Infusion: 05/24/23 10:59 Dose: Infused Documented By: ZOHRA Losartan Potassium (Losartan Potassium 50 Mg Tablet) 50 mg PO DAILY [facility]; Protocol Last Admin: 05/24/23 09:51 Dose: Not Given Documented By: CHINTAN Non-Admin Reason: NPO Multivitamins/Vitamin C (Multivitamin Tablet) 1 tab PO DAILY [facility] Last Admin: 05/24/23 09:51 Dose: Not Given Documented By: CHINTAN Non-Admin Reason: NPO Nicotine Polacrilex (Nicotine Polacrilex 2 Mg Gum) 2 mg BUCCAL Q2H PRN PRN Reason: Nicotine Cravings Ondansetron HCl (Ondansetron Hcl 4 Mg/2 Ml Vial) 4 mg IVPUSH ONCE PRN PRN Reason: Nausea and Vomiting Pantoprazole Sodium (Pantoprazole Sodium 40 Mg/10 Ml Vial) 40 mg IVPUSH Q12H [facility] Last Admin: 05/24/23 10:14 Dose: 40 mg Documented By: CHINTAN Sodium Chloride (0.9 % Sodium Chloride Flush 3 Ml Syringe) 3 ml IVFLUSH QSHIFT [facility] Last Admin: 05/24/23 09:51 Dose: Not Given Documented By: CHINTAN Non-Admin Reason: IV Running Labs 05/24/23 05:49 05/24/23 05:49 Labs: Laboratory Results - last 24 hr 05/23/23 05/23/23 05/23/23 17:49 19:11 22:29 MCV 100.3 H MCH 32.5 MCHC 32.4 RDW 13.5 Plt Count 258 MPV 10.1 Immature Gran % (Auto) 1.0 H Neut % (Auto) 70.6 Lymph % (Auto) 14.3 L [place] % (Auto) 11.3 H Eos % (Auto) 2.0 Baso % (Auto) 0.8 Lymph # (Auto) 1.8 [place] # (Auto) 1.4 H Eos # (Auto) 0.3 Baso # (Auto) 0.1 Abs Immat Gran (auto) 0.12 H Absolute Neuts (auto) 8.7 H Absolute Nucleated RBC 0.000 Nucleated RBC % (auto) 0.0 PT 12.1 INR 1.0 Anion Gap 12 Estim Creat Clear Calc 143.9 Estimated GFR > 60 Random Glucose 90 Calcium 9.3 Magnesium Total Bilirubin 0.5 AST 21 ALT 24 Alkaline Phosphatase 87 B-Natriuretic Peptide 41 Total Protein 6.9 Albumin 3.8 Vitamin B12 Folate Stool Occult Blood POSITIVE Acetaminophen 6 Blood Type O Positive Antibody Screen NEGATIVE Crossmatch See Detail 05/24/23 05:49 MCV MCH MCHC RDW Plt Count MPV Immature Gran % (Auto) Neut % (Auto) Lymph % (Auto) [place] % (Auto) Eos % (Auto) Baso % (Auto) Lymph # (Auto) [place] # (Auto) Eos # (Auto) Baso # (Auto) Abs Immat Gran (auto) Absolute Neuts (auto) Absolute Nucleated RBC Nucleated RBC % (auto) PT INR Anion Gap 11 L Estim Creat Clear Calc 117.6 Estimated GFR > 60 Random Glucose 96 Calcium 9.3 Magnesium 2.0 Total Bilirubin 1.5 H AST 22 ALT 22 Alkaline Phosphatase 76 B-Natriuretic Peptide Total Protein 6.5 Albumin 3.7 Vitamin B12 432 Folate 7.3 Stool Occult Blood Acetaminophen Blood Type Antibody Screen Crossmatch Assessment and Plan (1) Tobacco use disorder: Status: Acute (2) Edema of both legs: Status: Acute (3) Anemia: Status: Acute (4) Acute upper gastrointestinal bleeding: Status: Acute Plan Feliberto Monterroso is a 67 years old man admitted with: Acute upper Gastrointestinal bleeding. Continue Protonix 40 mg IV twice daily. Received 2 units of packed RBC hematocrit improved underwent upper endoscopy found to have stomach ulcers nonbleeding, a large duodenal ulcer with visible vessels received 2 cc epinephrine and was cauterized the ulcer bed was closed with clip, noted to have another duodenal ulcer nonbleeding with clean base GI recommend IV Protonix x3 days and clear liquid diet today. Will DC IV fluids follow CBC. Acute blood loss anemia due to upper GI bleed status post blood transfusion hematocrit improved follow CBC Hypertension. Stable BP, Continue losartan. Hydrochlorothiazide on hold to avoid dehydration. COPD. No acute exacerbation, Continue Symbicort, and as needed albuterol Morbid obesity. BMI 53.6 kg/m2. Weight loss. Alcohol abuse. Continue CIWA protocol. Folic acid and multivitamins. Consult to Addiction Medicine. Marked chronic nonpitting bilateral leg edema. Likely due to obesity. BNP, albumin, creatinine and LFTs are normal. Garrick stockings/leg elevation. Tobacco dependence. Counseling done, continue Nicotine gums as needed. DVT prophylaxis: SCDs Code status: Full Patient will need continued inpatient hospitalization due to upper GI bleed status post cauterization and clipping of duodenal ulcer request 3 days of IV Protonix as per gastroenterology recommendation . Quality Stroke Does the patient have a stroke diagnosis?: No VTE Prior VTE?: No VTE Risk Level:: Medical - moderate - high VTE Device Contraindication: N/A - Device Ordered VTE Drug Contraindication: Treatment Not Indicated
--- NOTE | 2023-05-24 13:31 | MHC.CM.PN ---
Addendum entered by Rosario Puente 05/24/23 13:48: Email received from pts son/HCP Brandon with copy of HCP and POA, now on file. Original Note: IMM 05/23. Pt lives at home self-care. Pt states he moved into his office at [address] due to his ex- having 6 or 8 dogs who bark all night leaving him unable to sleep. Pts ex- will transport him home. Pt states his son Brandon is HCP, copy requested. Call placed to pts son/HCP Brandon Monterroso at [phone] with pts permission, to request HCP copy. This CM spoke with Brandon who stated he will email HCP to this CM. PCP: Dr. Armando Aquino
--- NOTE | 2023-05-24 16:42 | MHC.RECOVRN ---
Met with pt in 47-1 after consult placed to Addiction Medicine for positive screening related t ETOH use.? Chart review completed and received report from floor nurse Rama Pt had presented to the ED with black/tarry stool x 2 days.? Pt was admitted to the floor GI Bleed.? ? Upon assessment pt is up in recliner awake and alert.? He denies any W/D sx and none observed.??Pt?s last CIWA was a 0. Pt reports that he drinks approx.. 4-5 beers a night. He reports that he has been doing this for 40 years and does not wish to stop.? He does not feel it is a problem.? He feels that the GI bleed was solely caused by the NSAIDS he was taking for heel pain.? Pt is not interested in any further visits from [facility] at this time.? He did accept the material I brought to him for Harm reduction and MAT for AUD along with CCC info.? Report provided to montessori program director Lorin Abreu, ISA, ACS team and floor nurse Rama. ACS team available for further services PRN.
--- NOTE | 2023-05-24 19:28 | PC.NURSE ---
Pt refusing compression stocking , PRASAD wrap applied to jeannette LE s and pt is tolerating well
--- NOTE | 2023-05-24 19:59 | PC.NURSE ---
Oxygen saturation 84% RA during sleep, when pt is awake his O2 sat is 94-98% when awake. DR Webb was notified , order for O2 obtained . pt will be placed on Oxymask , he is mouth breather
[2023-05-24] MEDS: 0.9 % Sodium Chloride Flush 3 ML SYRINGE IVFLUSH (20:10)
--- NOTE | 2023-05-24 20:14 | PC.NURSE ---
Oxymask applied , pt is refusing mask ,stated that he feels claustrophobic
[2023-05-25] VITALS (9 sets, daily range): BP systolic 104–122; BP diastolic 44–63; PULSE 80–91; RESP 16–20; TEMP 36.2–36.6; O2SAT 88–98
[2023-05-25] MEDS: 0.9 % Sodium Chloride Flush 3 ML SYRINGE IVFLUSH ×4 (01:34→19:27)
[2023-05-25 06:44] LABS: Hematocrit 32.2 % (42.0-52.0); Hemoglobin 10.5 g/dl (14.0-18.0); Mean Corpuscular HGB Conc 32.6 g/dl (31.0-36.0); Mean Corpuscular Hemoglobin 32.6 pg (27.0-33.0); Mean Platelet Volume 10.3 fL (9.4-12.4); Platelet Count 220 X10*3/uL (160-400); Red Blood Count 3.22 X10*6/uL (4.60-5.80); Red Cell Distribution Width 13.6 % (11.0-16.0); White Blood Count 10.8 X10*3/uL (4.8-10.8)
--- NOTE | 2023-05-25 07:00 | CA_ITS ---
Transthoracic Echocardiogram Patient (Last, First, Middle): Feliberto Monterroso F Gender: Male Date of : 1955 Age: 67 Procedure Date: 05/25/2023 Procedure Type: Transthoracic Echocardiogram [place] [facility] [place]: 172.72 cm Weight: 159.67 kg BSA: 2.60 m2 Heart Rate: bpm BP: 104 / 44 mmHg Media Marketing Coordinator: Referring MD: Augustine Reyes MD Carry Out Clerk: Andrea Owen MD Symptoms: marked leg edema Study Quality: Fair, contrast ECG Rhythm: Sinus Conclusions: - 1. Technically limited study despite the use of contrast agent 2. LV ejection fraction appears to be normal with LVEF of 60 65% with moderate LVH with impaired relaxation filling pattern 3. Limited visualization of cardiac valves with cardiac valvular Doppler within normal limits 4. [id number] elevation right ventricular systolic pressure with significantly elevated right atrial pressures Findings Procedure Information Contrast agent, definity, is being given per protocol without apparent complications. Left Ventricle Normal left ventricular size and systolic function. There is moderately increased left ventricular wall thickness. The visually estimated ejection fraction is between 60-65%. Spectral Doppler is indicative of an impaired relaxation filling pattern. E/E prime ratio is between 8 and 15 consistent with indeterminate filling pressures. Right Ventricle The right ventricle was not well visualized. Atria The left atrium was not well visualized. Interatrial shunt cannot be excluded. The right atrium was not well visualized. Aortic Valve The aortic valve was not well visualized. There is mild calcification of the aortic valve. There is no aortic valve stenosis. There is no aortic valve regurgitation. Mitral Valve The mitral valve was not well visualized. There is no mitral valve regurgitation. There is no mitral valve stenosis. Pulmonic Valve The pulmonic valve was not well visualized. Tricuspid Valve Likely normal tricuspid valve structure and function. There is trace tricuspid valve regurgitation. Significantly elevated right atrial pressure. Mild to moderate pulmonary hypertension is present. Great Vessels The aorta was not well visualized. The pulmonary artery was not well visualized. Venous The inferior vena cava is moderately dilated and does not collapse with inspiration. Pericardium/Pleural The pericardium was not well visualized. Measurements 2D Linear Measurements IVSd: 1.61 0.6-0.9/0.6-1.0 cm LVIDd: 3.66 3.9-5.3/4.2-5.9 cm LVIDd Index: 1.41 2.4-3.2/2.2-3.1 cm/m2 LVIDs: 2.63 2.0-3.6 cm LVPWd: 1.64 0.7-1.1 cm Ao Root: 3.20 2.1-3.5 cm LA Diam: 4.50 2.7-3.8/3.0-4.0 cm LAIDs Index: 1.73 1.5-2.3 cm/m2 LV Mass: 292.15 67-162/88-224 g LV Mass Index: 112.36 43-95/49-115 g/m2 LVOT Diam: 2.00 3.0+(-)1.3 cm Mitral Valve MV Pk E: 0.86 MV PK A: 1.18 MV Decel Time: 175.00 E/A: 0.70 E'Lateral: 8.49 E'Medial: 5.11 E/E' Med: 16.80 E/E' Lat: 10.10 PHT: 51.00 MVA PHT: 4.31 Decel [place]: 4.89 Aortic Valve AoV Pk James: 1.90 AoV Mn James: 1.20 AoV VTI: 0.38 AoV Pk Grad: 14.00 Aov Mn Grad: 7.00 [place] Cont.VTI: 1.67 LVOT LVOT Pk James: 1.02 LVOT Mn James: 0.70 LVOT VTI: 0.20 LVOT Pk Grad: 4.00 LVOT Mn Grad: 2.00 LVOT Diam: 2.00 LVOT Area: 3.14 Diastolic Function MV Pk E: 0.86 MV Pk A: 1.18 E/A: 0.70 E'Medial: 5.11 E/E' Med: 16.80 E' Laterial: 8.49 E/E' Lat: 10.10 Right Ventricle TAPSE (mm): 28.10 TVS' James: 12.70 Tricuspid Valve TR Pk James: 2.83 TR Pk Grad: 32.00 RA Press: 15.00 RVSP: 47.00 Great Vessels Aorta Ao Root-2D: 3.20 2.0-3.7 cm Pulmonary Valve PV Pk James: 1.14 Peak PV Grad: 5.00 Updated in Other Vendor System with Status of Final Andrea Owen MD electronically signed on 05/25/2023 12:53:20 PM with status of Final
[2023-05-25 07:12] LABS: Anion Gap 12 (12-20); Blood Urea Nitrogen 28 mg/dL (9-16); Carbon Dioxide 25 mmol/L (22-29); Chloride 103 mmol/L (96-108); Creatinine Clr Calc Pharmacy 122.8; Estimated Glomerular Filt Rate > 60; Glucose Random 106 mg/dL (60-115); Potassium 3.6 mmol/L (3.3-5.1); Sodium 136 mmol/L (135-145)
[2023-05-25] MEDS: Fluticasone/Vilanterol 200/25 BLST.W.DEV 1 PUFF INHALE (07:44)
[2023-05-25] MEDS: Thiamine HCL 100 MG in 0.9 % Sodium Chloride 100 ML 202 MG IV (08:33)
[2023-05-25] MEDS: Pantoprazole Sodium 40 MG/10 ML VIAL IVPUSH ×2 (08:33→19:27)
[2023-05-25] MEDS: Multivitamin TABLET 1 TAB PO (08:33)
[2023-05-25] MEDS: Folic Acid 1 MG TABLET PO (08:33)
--- NOTE | 2023-05-25 09:45 | HO.POSTANES ---
Post Anesthesia Evaluation Post Anesthesia Evaluation Date of Service: 05/25/23 Vital Signs: Vital Signs Temp Pulse Resp BP Pulse Ox O2 Del Method O2 Flow Rate 05/25/23 07:46 88 20 05/25/23 07:45 97.1 F 84 18 105/47 L 94 Room Air 05/25/23 03:39 97.8 F 88 20 104/44 L 97 Nasal Cannula 1 05/25/23 01:43 90 L Nasal Cannula 1 05/25/23 01:42 88 L Room Air 05/24/23 23:16 98.2 F 86 20 100/51 L 96 Room Air Anesthesia: Monitored Mental Status: Awake Pain Control: Satisfactory Nausea/Vomiting: None Hydration: Adequate Anesthesia-Related Issues: No Anes. Related Issues
--- NOTE | 2023-05-25 12:38 | MHC.RECOVRN ---
AUDIT-C Brief Intervention Pt had positive screen for unhealthy alcohol use on admission, subsequently met with Addiction Consult Service. Please see compressed gases tester note from 05/24/23.
--- NOTE | 2023-05-25 13:10 | P.PNIM_ITS ---
Subjective Subjective Date of Service: 05/25/23 Interval History: Complaining of multiple dark stools, no bright red blood per rectum denies abdominal pain, no hematemesis, tolerating clear liquid diet, no heartburn no acidity. Review of Systems All other system reviewed and negative. Physical Exam 2 Vital Signs: Vital Signs: Last Vital Signs Temp 97.6 F 05/25/23 11:23 Pulse 91 05/25/23 11:23 Resp 18 05/25/23 11:23 BP 112/63 05/25/23 11:23 Pulse Ox 92 05/25/23 11:23 O2 Del Method Room Air 05/25/23 11:23 O2 Flow Rate 1 05/25/23 03:39 BMI result Body Mass Index 53.6 Const: Other: General sitting comfortably in no acute distress. Neck no JVD. CVS regular rate rhythm, Respiratory lungs clear to auscultation, no respiratory distress, no wheeze, no rhonchi. Gastrointestinal abdomen soft, non tender, bowel sounds audible, no guarding , no rigidity. Extremities b/l nonpitting edema Neuro non focal Skin no rash Psych appropriate affect 0 Objective Data Active Medications Albuterol Sulfate (Albuterol Sulfate 90 Mcg 8 Gm Inhaler) 2 puff INHALE Q4H PRN PRN Reason: Shortness Of Breath Fluticasone/Vilanterol (Fluticasone/Vilanterol 200/25 Blst.W.Dev) 1 puff INHALE RDAILY [facility] Last Admin: 05/25/23 07:44 Dose: 1 puff Documented By: ALEX Folic Acid (Folic Acid 1 Mg Tablet) 1 mg PO DAILY [facility] Last Admin: 05/25/23 08:33 Dose: 1 mg Documented By: TANYA Thiamine HCl 100 mg/ Sodium (Chloride) 101 mls @ 202 mls/hr IV DAILY [facility] Last Infusion: 05/25/23 09:03 Dose: Infused Documented By: TANYA Multivitamins/Vitamin C (Multivitamin Tablet) 1 tab PO DAILY [facility] Last Admin: 05/25/23 08:33 Dose: 1 tab Documented By: TANYA Nicotine Polacrilex (Nicotine Polacrilex 2 Mg Gum) 2 mg BUCCAL Q2H PRN PRN Reason: Nicotine Cravings Ondansetron HCl (Ondansetron Hcl 4 Mg/2 Ml Vial) 4 mg IVPUSH ONCE PRN PRN Reason: Nausea and Vomiting Pantoprazole Sodium (Pantoprazole Sodium 40 Mg/10 Ml Vial) 40 mg IVPUSH Q12H [facility] Last Admin: 05/25/23 08:33 Dose: 40 mg Documented By: TANYA Sodium Chloride (0.9 % Sodium Chloride Flush 3 Ml Syringe) 3 ml IVFLUSH QSHIFT [facility] Last Admin: 05/25/23 08:34 Dose: 3 ml Documented By: TANYA Labs 05/25/23 05:55 05/25/23 05:55 Labs: Laboratory Results - last 24 hr 05/25/23 05:55 MCV 100.0 H MCH 32.6 MCHC 32.6 RDW 13.6 Plt Count 220 MPV 10.3 Absolute Nucleated RBC 0.000 Nucleated RBC % (auto) 0.0 Anion Gap 12 Estim Creat Clear Calc 122.8 Estimated GFR > 60 Random Glucose 106 Calcium 9.0 Assessment and Plan (1) Tobacco use disorder: Status: Acute (2) Edema of both legs: Status: Acute (3) Anemia: Status: Acute (4) Acute upper gastrointestinal bleeding: Status: Acute Plan Feliberto Monterroso is a 67 years old man admitted with: Acute upper Gastrointestinal bleeding. Complaining of persistent multiple dark stools likely passing old blood Continue Protonix 40 mg IV twice daily. Received 2 units of packed RBC hematocrit improved underwent upper endoscopy found to have stomach ulcers nonbleeding, a large duodenal ulcer with visible vessels received 2 cc epinephrine and was cauterized , ulcer bed was closed with clip, noted to have another duodenal ulcer non bleeding with clean base GI recommend IV Protonix x3 days On clear liquid diet will recheck CBC if stable will advance to regular Acute blood loss anemia due to upper GI bleed status post blood transfusion hematocrit improved. Hypertension. Continue losartan, soft blood pressure continue to hold hydrochlorothiazide. COPD. No acute exacerbation, Continue Symbicort, and as needed albuterol Morbid obesity. BMI 53.6 kg/m2. Weight loss recommended. Alcohol abuse. Continue CIWA protocol. Folic acid and multivitamins. Seen by recovery team patient admits to drinking 4-5 beers a night for 40 years and he does not wish to stop Information provided to him for harm reduction and MAT for AUD. Marked chronic non pitting bilateral leg edema. Likely due to obesity. BNP, albumin, creatinine and LFTs are normal. Garrick stockings/leg elevation. Tobacco dependence. Counseling done, continue Nicotine gums as needed. DVT prophylaxis: SCDs Code status: Full Patient will need continued inpatient hospitalization due to upper GI bleed status post cauterization and clipping of duodenal ulcer request 3 days of IV Protonix as per gastroenterology recommendation . Quality Stroke Does the patient have a stroke diagnosis?: No VTE Prior VTE?: No VTE Risk Level:: Medical - moderate - high VTE Device Contraindication: N/A - Device Ordered VTE Drug Contraindication: Treatment Not Indicated
--- NOTE | 2023-05-25 13:31 | MHC.CM.PN ---
EMR REVIEWED, PER HOSPITALIST PT WILL REMAIN INPT THROUGH 05/26 FOR IV PROTONIX Q12HR, RECEOVERY TEAM HAS MET W/PT WHO DOES NOT BELIEVE HIS ISSUES ARE ETOH RELATED, PT DECLINED INTERVENTION AND WAS PROVIDED W/RESOURCES. ANTIC PT WILL DC HOME NO SERVICES W/EXWIFE FOR TRANSPORT WHEN MEDICALLY CLEARED.
[2023-05-25 14:32] LABS: Hematocrit 31.9 % (42.0-52.0); Hemoglobin 10.6 g/dl (14.0-18.0); Mean Corpuscular HGB Conc 33.2 g/dl (31.0-36.0); Mean Corpuscular Hemoglobin 33.1 pg (27.0-33.0); Mean Corpuscular Volume 99.7 fL (80.0-98.0); Mean Platelet Volume 10.3 fL (9.4-12.4); Platelet Count 219 X10*3/uL (160-400); Red Cell Distribution Width 13.7 % (11.0-16.0); White Blood Count 10.6 X10*3/uL (4.8-10.8)
--- NOTE | 2023-05-25 15:40 | P.PNGI_ITS ---
Subjective Subjective Date of Service: 05/25/23 Interval History: Seen and evaluated at bedside. Reports mild shortness of breath on activity. BMs cont to be black and loose but slowing down per his report. Critical Care Time (minutes): 0 Physical Exam 2 Vital Signs: Vital Signs: Last Vital Signs Temp 97.5 F 05/25/23 23:33 Pulse 86 05/25/23 23:33 Resp 16 05/25/23 23:33 BP 117/52 L 05/25/23 23:33 Pulse Ox 95 05/25/23 23:33 O2 Del Method Room Air 05/25/23 23:33 O2 Flow Rate 1 05/25/23 03:39 BMI result Body Mass Index 53.6 Obese male mildly tachypneac +++ pitting edema in lower extremities b /l Objective Data Labs 05/25/23 13:48 05/25/23 05:55 Labs: Laboratory Results - last 24 hr 05/25/23 05/25/23 05:55 13:48 WBC 10.8 10.6 RBC 3.22 L 3.20 L Hgb 10.5 L 10.6 L Hct 32.2 L 31.9 L MCV 100.0 H 99.7 H MCH 32.6 33.1 H MCHC 32.6 33.2 RDW 13.6 13.7 Plt Count 220 219 MPV 10.3 10.3 Absolute Nucleated RBC 0.000 0.000 Nucleated RBC % (auto) 0.0 0.0 Sodium 136 Potassium 3.6 Chloride 103 Carbon Dioxide 25 Anion Gap 12 BUN 28 H Creatinine 0.89 Estim Creat Clear Calc 122.8 Estimated GFR > 60 Random Glucose 106 Calcium 9.0 Procedures Date of Service Date of Service: 05/25/23 Progress Note: A&P Assessment and plan (1) Anemia: Status: Acute (2) Acute upper gastrointestinal bleeding: Status: Acute (3) Peptic ulcer disease: Status: Acute (4) Excessive use of nonsteroidal anti-inflammatory drug (NSAID): Status: Acute Plan P/w acute anemia of blood loss 2/2 UGIB from peptic ulcer disease involving stomach and duodenum in the setting of high dose NSAID use x months. s/p EGD 05/24/23 -> gastric and duodenal ulcers with high risk napoleon IIA ulcer in duo bulb (epi, cautery and clip x2). Plan: - Ongoing melena likely residual given stable counts - Ok to progress diet - Cont IV protonix BID till 3/13 am - Avoid NSAIDs, smoking and etOH - Follow up EGD to be booked as outpatient in 8 weeks Time Spent With Patient Time: Total time managing care of this patient today ____ minutes. Quality Stroke Does the patient have a stroke diagnosis?: No VTE Prior VTE?: No VTE Risk Level:: Medical - moderate - high VTE Device Contraindication: N/A - Device Ordered VTE Drug Contraindication: Treatment Not Indicated
[2023-05-25] MEDS: Acetaminophen 325 MG TABLET 650 MG PO ×2 (15:51→21:20)
[2023-05-25] MEDS: traMADoL HCL 50 MG TABLET PO (18:14)
[2023-05-25] MEDS: Melatonin 3 MG TABLET 6 MG PO (21:20)
[2023-05-26] VITALS (7 sets, daily range): BP systolic 103–146; BP diastolic 48–76; PULSE 82–95; RESP 18–20; TEMP 36.2–36.7; O2SAT 94–98
[2023-05-26] MEDS: traMADoL HCL 50 MG TABLET PO ×4 (02:23→23:55)
[2023-05-26] MEDS: Acetaminophen 325 MG TABLET 650 MG PO ×3 (03:30→20:54)
[2023-05-26] MEDS: Fluticasone/Vilanterol 200/25 BLST.W.DEV 1 PUFF INHALE (08:31)
[2023-05-26] MEDS: Folic Acid 1 MG TABLET PO (09:05)
[2023-05-26] MEDS: Thiamine HCL 100 MG in 0.9 % Sodium Chloride 100 ML 202 MG IV (09:05)
[2023-05-26] MEDS: Multivitamin TABLET 1 TAB PO (09:05)
[2023-05-26] MEDS: Pantoprazole Sodium 40 MG/10 ML VIAL IVPUSH ×2 (09:06→20:45)
[2023-05-26] MEDS: 0.9 % Sodium Chloride Flush 3 ML SYRINGE IVFLUSH ×2 (09:06→17:40)
--- NOTE | 2023-05-26 09:58 | P.PNIM_ITS ---
Subjective Subjective Date of Service: 05/26/23 Interval History: Complaining of bilateral heel pain left greater than right chronic symptoms due to heel spur was using NSAIDs at home. No further episodes of black stools, had brown stool this morning, no abdominal pain, no hematemesis no nausea, no vomiting, tolerating diet. Review of Systems All other system reviewed and negative. Physical Exam 2 Vital Signs: Vital Signs: Last Vital Signs Temp 98.0 F 05/26/23 07:17 Pulse 95 05/26/23 08:33 Resp 20 05/26/23 08:33 BP 146/76 H 05/26/23 07:17 Pulse Ox 98 05/26/23 07:17 O2 Del Method Room Air 05/26/23 07:17 O2 Flow Rate 1 05/25/23 03:39 BMI result Body Mass Index 53.6 Const: Other: General sitting comfortably in no acute distress. Neck no JVD. CVS regular rate rhythm, Respiratory lungs clear to auscultation, no respiratory distress, no wheeze, no rhonchi. Gastrointestinal abdomen soft, non tender, bowel sounds audible, no guarding , no rigidity. Extremities b/l non pitting edema, tenderness left heel Neuro non focal Skin no rash, dry scaly skin Psych appropriate affect Objective Data Active Medications Acetaminophen (Acetaminophen 325 Mg Tablet) 650 mg PO Q6H PRN PRN Reason: Pain, Mild (Pain Scale 1-3) Last Admin: 05/26/23 09:49 Dose: 650 mg Documented By: TANYA Albuterol Sulfate (Albuterol Sulfate 90 Mcg 8 Gm Inhaler) 2 puff INHALE Q4H PRN PRN Reason: Shortness Of Breath Fluticasone/Vilanterol (Fluticasone/Vilanterol 200/25 Blst.W.Dev) 1 puff INHALE RDAILY [facility] Last Admin: 05/26/23 08:31 Dose: 1 puff Documented By: FADI Folic Acid (Folic Acid 1 Mg Tablet) 1 mg PO DAILY [facility] Last Admin: 05/26/23 09:05 Dose: 1 mg Documented By: TNAYA Thiamine HCl 100 mg/ Sodium (Chloride) 101 mls @ 202 mls/hr IV DAILY [facility] Last Admin: 05/26/23 09:05 Dose: 202 mls/hr Documented By: TANYA Melatonin (Melatonin 3 Mg Tablet) 6 mg PO BEDTIME PRN PRN Reason: insomnia Last Admin: 05/25/23 21:20 Dose: 6 mg Documented By: LAI Multivitamins/Vitamin C (Multivitamin Tablet) 1 tab PO DAILY [facility] Last Admin: 05/26/23 09:05 Dose: 1 tab Documented By: TANYA Nicotine Polacrilex (Nicotine Polacrilex 2 Mg Gum) 2 mg BUCCAL Q2H PRN PRN Reason: Nicotine Cravings Ondansetron HCl (Ondansetron Hcl 4 Mg/2 Ml Vial) 4 mg IVPUSH ONCE PRN PRN Reason: Nausea and Vomiting Pantoprazole Sodium (Pantoprazole Sodium 40 Mg/10 Ml Vial) 40 mg IVPUSH Q12H [facility] Last Admin: 05/26/23 09:06 Dose: 40 mg Documented By: TANYA Sodium Chloride (0.9 % Sodium Chloride Flush 3 Ml Syringe) 3 ml IVFLUSH QSHIFT [facility] Last Admin: 05/26/23 09:06 Dose: 3 ml Documented By: TANYA Tramadol HCl (Tramadol Hcl 50 Mg Tablet) 50 mg PO Q6H PRN PRN Reason: Pain, Severe (Pain Scale 7-10) Last Admin: 05/26/23 09:05 Dose: 50 mg Documented By: TANYA Labs 05/25/23 13:48 05/25/23 05:55 Labs: Laboratory Results - last 24 hr 05/25/23 13:48 MCV 99.7 H MCH 33.1 H MCHC 33.2 RDW 13.7 Plt Count 219 MPV 10.3 Absolute Nucleated RBC 0.000 Nucleated RBC % (auto) 0.0 Assessment and Plan (1) Tobacco use disorder: Status: Acute (2) Edema of both legs: Status: Acute (3) Anemia: Status: Acute (4) Acute upper gastrointestinal bleeding: Status: Acute Plan Feliberto Monterroso is a 67 years old man admitted with: Acute upper Gastrointestinal bleeding. No further episodes of dark stools, had normal bowel movement this morning. Continue Protonix 40 mg IV twice daily end date 05/26. Received 2 units of packed RBC hematocrit improved underwent upper endoscopy found to have stomach ulcers non bleeding, a large duodenal ulcer with visible vessels received 2 cc epinephrine and was cauterized , ulcer bed was closed with clip, noted to have another duodenal ulcer non bleeding with clean base. GI recommend IV Protonix x3 days ending tomorrow am. Diet advanced to regular patient tolerating with no GI symptoms Recommend to stop all NSAIDs, no aspirin and alcohol, repeat EGD in 8 weeks. Acute blood loss anemia due to upper GI bleed status post blood transfusion hematocrit improved and stable. Hypertension. Continue losartan 50 mg,(home dose 100 mg), soft blood pressure continue to hold hydrochlorothiazide. COPD. No acute exacerbation, Continue Symbicort, and as needed albuterol Morbid obesity. BMI 53.6 kg/m2. Weight loss recommended. Alcohol abuse. Continue CIWA protocol. Folic acid and multivitamins. Seen by recovery team patient admits to drinking 4-5 beers a night for 40 years and he does not wish to stop, Information provided to him for harm reduction and MAT for AUD. Marked chronic lymphedema. BNP, albumin, creatinine and LFTs are normal. Garrick stockings/leg elevation. Outpatient lymphedema clinic. Tobacco dependence. Counseling done, continue Nicotine gums as needed. Chronic heel pain due to heel spur left greater than right recommend weight reduction, outpatient lymphedema clinic recommend to avoid NSAIDs, Ultram as needed Outpatient follow-up with Podiatry DVT prophylaxis: SCDs Code status: Full Patient will need continued inpatient hospitalization due to upper GI bleed status post cauterization and clipping of duodenal ulcer request 3 days of IV Protonix as per gastroenterology recommendation . Quality Stroke Does the patient have a stroke diagnosis?: No VTE Prior VTE?: No VTE Risk Level:: Medical - moderate - high VTE Device Contraindication: N/A - Device Ordered VTE Drug Contraindication: Treatment Not Indicated
--- NOTE | 2023-05-26 14:02 | P.CDIM_ITS ---
PROVIDER RESPONSE TEXT: To clarify, the appropriate diagnosis supported by the clinical indicators: Acute QUERY TEXT: PHYSICIAN'S DOCUMENTATION REQUEST Date of Query: 05/26/2023 12:27 PM EDT Patient Name: Feliberto Monterroso Admit Date: 05/24/2023 Dear Mike Ceja, A review of the medical record indicates additional documentation may be needed. Please review below and update the documentation accordingly. Clinical Indicators: Progress notes: Upper GI bleed, persistent dark stools. Upper endoscopy found to have stomach ulcers nonbleeding, a large duodenal ulcer with visible vessels . Received 2 cc epinephrine and was cauterized, ulcer bed was closed with clip, noted to have another d uodenal ulcer nonbleeding with clean base. GI recommends IV Protonix x3 days ending tomorrow am. GI consult note - gastric and duodenal ulcers with high risk for napoleon IIA ulcer in duobulb. Avoid NSAIDS. Clarify which of the following accurately represents the acuity of the Duodenal ulcer: Possible options might include: Acute Acute on chronic Chronic stable condition Other (explain) Clinically unable to determine (explain) Thank you, Abigail Oh, CCS, CDIS Use of terms such as suspected, likely, concern for, or probable (associated with a specific diagnosi s that is being evaluated, monitored, or treated as if it exists) are acceptable and can be coded in the inpatient se tting, when documented at the time of discharge. Please use your independent medical judgment in providing your response. THIS QUERY IS PART OF THE PERMANENT MEDICAL RECORD
[2023-05-26] MEDS: Zolpidem Tartrate 5 MG TABLET PO (20:50)
[2023-05-27 03:24] VITALS: BP 138/56; PULSE 83; RESP 20; TEMP 36.6; O2SAT 95
[2023-05-27 07:20] VITALS: BP 113/55; PULSE 85; RESP 20; TEMP 36.4; O2SAT 93
[2023-05-27] MEDS: Fluticasone/Vilanterol 200/25 BLST.W.DEV 1 PUFF INHALE (07:48)
[2023-05-27 08:05] VITALS: PULSE 85; RESP 20; O2SAT 89
[2023-05-27] MEDS: Folic Acid 1 MG TABLET PO (09:12)
[2023-05-27] MEDS: Multivitamin TABLET 1 TAB PO (09:12)
[2023-05-27] MEDS: traMADoL HCL 50 MG TABLET PO (09:13)
[2023-05-27] MEDS: Losartan Potassium 50 MG TABLET PO (09:13)
[2023-05-27] MEDS: 0.9 % Sodium Chloride Flush 3 ML SYRINGE IVFLUSH (09:16)
[2023-05-27] MEDS: Pantoprazole Sodium 40 MG/10 ML VIAL IVPUSH (11:08)
[2023-05-27 11:11] VITALS: BP 114/54; PULSE 82; RESP 20; TEMP 36.3; O2SAT 97
--- NOTE | 2023-05-27 11:12 | P.DS_ITS ---
DS: Providers Provider Date of Service: 05/27/23 Date of admission: 05/23/23 20:43 Date of discharge: 05/27/23 Primary care physician: Armando Aquino MD Consults: 05/23/23 19:43 Consult to Gastroenterology Routine Consulting Provider: Louann Beal Reason for consultation: Black stools, on naproxen, 5 beers a day evaluate for upper GI bleed Has provider been notified: Yes 05/24/23 10:07 Addiction Medicine Routine Consulting Provider: Addiction Covering Reason for consultation: positive screening DS: Diagnosis Discharge Diagnosis (1) Tobacco use disorder: Status: Acute (2) Acute upper gastrointestinal bleeding: Status: Acute (3) Acute blood loss anemia: Status: Acute (4) Excessive use of nonsteroidal anti-inflammatory drug (NSAID): Status: Acute (5) Peptic ulcer disease: Status: Acute (6) Essential hypertension: Status: Acute (7) Alcohol use disorder: Status: Acute (8) Morbid obesity: Status: Acute (9) Heel pain: Status: Acute DS: Summary Hospital Course Hospital Course: From the history and physical by the admitting hospitalist, Augustine Martinez, 05/23/23: Feliberto Monterroso is a 67 years old man with past medical history significant for essential hypertension, COPD and obesity presents to the emergency department complaining of black stools since . He has been taking multiple doses NSAIDs over the last months for left heel pain. Denies use of blood thinners. He denied any associated abdominal pain, nausea, vomiting, dizziness or shortness breath. He also denied chest pain. He does have marked edema to lower extremities chronically. He denied any history heart failure, GI bleeding/PUD or liver disease. He does abuse alcohol -drinks 4-5 alcoholic beverage, smoke tobacco -about half pack daily. Denies illicit drug use. In the ED, he was found to have stable vital signs. Workup is remarkable for leukocytosis, anemia (Hgb 11.2) and elevated BUN. Creatinine is 0.76. BNP is normal. There are no electrolyte imbalances or acidosis. CXR is negative. ED tx: Pantoprazole 80 mg IV. He was admitted to the telemetry unit with Gastroenterology consultation. He was given IV pantoprazole and transfused 2 units of red blood cells with appropriate response in hemoglobin. EGD done on 05/24/23 showed non-bleeding stomach ulcers; a large duodenal ulcer with visible vessels that was cauterized, injected with epinephrine, and clipped; and another duodenal ulcer that was not bleeding and had a clean base. Diet was advanced and he had no abdominal pain. He was advised to avoid NSAIDs, ASA, and alcohol and repeat EGD with Dr Louann Beal in October. HCTZ was discontinued due to soft blood pressure. No alcohol withdrawal syndrome. He met with the Recovery Team and was firmly contemplative regarding cessation. He was given information on harm reduction and MAT. He was counseled to quit smoking. He was given tramadol for heel pain. He should follow up with his primary care doctor in 1 week. Time Attestation Discharge Coordination Time (in mins): 40 Quality: Safe Use of Opioids Does Pt have an Active Cancer Diagnosis on the Problem List?: No Quality: Stroke Does the patient have a stroke diagnosis?: No Physical Exam Vital Signs: Vital Signs: Last Vital Signs Temp 97.6 F 05/27/23 07:20 Pulse 85 05/27/23 08:05 Resp 20 05/27/23 08:05 BP 113/55 L 05/27/23 07:20 Pulse Ox 93 05/27/23 07:20 O2 Del Method Room Air 05/27/23 07:20 O2 Flow Rate 1 05/25/23 03:39 BMI result Body Mass Index 53.6 Gen: in no acute distress HEENT: sclera anicteric, moist mucus membranes Neck: supple Lungs: clear to auscultation bilaterally Heart: regular rate and rhythm, no murmurs Abd: soft, non-tender, non-distended, obese Ext: no edema Skin: warm/well-perfused Neuro: alert and oriented x3, no focal findings Psych: appropriate affect DS: Data Data Completed and Pending Completed studies during hospitalization [Text1]: Laboratory Results WBC 10.6 X10*3/uL (4.8-10.8) 05/25/23 13:48 RBC 3.20 X10*6/uL (4.60-5.80) L 05/25/23 13:48 Hgb 10.6 g/dl (14.0-18.0) L 05/25/23 13:48 Hct 31.9 % (42.0-52.0) L 05/25/23 13:48 MCV 99.7 fL (80.0-98.0) H 05/25/23 13:48 MCH 33.1 pg (27.0-33.0) H 05/25/23 13:48 MCHC 33.2 g/dl (31.0-36.0) 05/25/23 13:48 RDW 13.7 % (11.0-16.0) 05/25/23 13:48 Plt Count 219 X10*3/uL (160-400) 05/25/23 13:48 MPV 10.3 fL (9.4-12.4) 05/25/23 13:48 Immature Gran % (Auto) 1.0 % (0.0-0.4) H 05/23/23 17:49 Neut % (Auto) 70.6 % (45-73) 05/23/23 17:49 Lymph % (Auto) 14.3 % (20-40) L 05/23/23 17:49 Harris % (Auto) 11.3 % (2-11) H 05/23/23 17:49 Eos % (Auto) 2.0 % (0-4) 05/23/23 17:49 Baso % (Auto) 0.8 % (0-2) 05/23/23 17:49 Lymph # (Auto) 1.8 X10*3/uL (1.2-4.9) 05/23/23 17:49 Harris # (Auto) 1.4 X10*3/uL (0.1-1.2) H 05/23/23 17:49 Eos # (Auto) 0.3 X10*3/uL (0.0-0.4) 05/23/23 17:49 Baso # (Auto) 0.1 X10*3/uL (0.0-0.2) 05/23/23 17:49 Abs Immat Gran (auto) 0.12 X10*3/uL (0.00-0.03) H 05/23/23 17:49 Absolute Neuts (auto) 8.7 x10*3/uL (2.0-8.3) H 05/23/23 17:49 Absolute Nucleated RBC 0.000 X10*3/uL (0.0-0.012) 05/25/23 13:48 Nucleated RBC % (auto) 0.0 /100WBC (0.0-0.2) 05/25/23 13:48 PT 12.1 SEC (11.1-13.3) 05/23/23 17:49 INR 1.0 (0.9-1.1) 05/23/23 17:49 Sodium 136 mmol/L (135-145) 05/25/23 05:55 Potassium 3.6 mmol/L (3.3-5.1) 05/25/23 05:55 Chloride 103 mmol/L (96-108) 05/25/23 05:55 Carbon Dioxide 25 mmol/L (22-29) 05/25/23 05:55 Anion Gap 12 (12-20) 05/25/23 05:55 BUN 28 mg/dL (9-16) H 05/25/23 05:55 Creatinine 0.89 mg/dL (0.5-1.4) 05/25/23 05:55 Estim Creat Clear Calc 122.8 05/25/23 05:55 Estimated GFR > 60 05/25/23 05:55 Random Glucose 106 mg/dL (60-115) 05/25/23 05:55 Calcium 9.0 mg/dL (8.4-10.2) 05/25/23 05:55 Magnesium 2.0 mg/dL (1.6-2.6) 05/24/23 05:49 Total Bilirubin 1.5 mg/dL (0.0-1.0) H 05/24/23 05:49 AST 22 U/L (5-37) 05/24/23 05:49 ALT 22 U/L (0-40) 05/24/23 05:49 Alkaline Phosphatase 76 U/L (39-117) 05/24/23 05:49 B-Natriuretic Peptide 41 pg/mL (<100) 05/23/23 17:49 Total Protein 6.5 g/dL (6.5-8.0) 05/24/23 05:49 Albumin 3.7 g/dL (3.5-5.0) 05/24/23 05:49 Vitamin B12 432 pg/mL (200-900) 05/24/23 05:49 Folate 7.3 ng/mL (> or = 4.0) 05/24/23 05:49 Stool Occult Blood POSITIVE (NEGATIVE) 05/23/23 19:11 Acetaminophen 6 mcg/mL (<30) 05/23/23 17:49 Blood Type O Positive 05/23/23 22:29 Antibody Screen NEGATIVE 05/23/23 22:29 Crossmatch See Detail 05/23/23 22:29 Impressions Chest X-Ray 05/23/23 17:46 IMPRESSION: Unremarkable examination. No CHF. Venous Duplex 05/24/23 08:30 IMPRESSION: *No evidence of deep venous thromboses within the left and right lower extremities. Of note the left and right calf veins are suboptimally visualized secondary to body habitus. *Partial visualization of bilateral lower extremity subcutaneous edema. Pending studies at discharge: Pending at discharge 05/24/23 11:26 Surgical [PTH] Routine Discharge Plan Discharge Anticipated Discharge Date/Time: 05/27/23 11:06 Patient Disposition: Home Health Service Discharge Diagnosis: upper GI bleed from Referrals: Armando Aquino MD [Physician] - 1 Week Louann Beal MD [Physician] - 4 Months Discharge Medications: New omeprazole 40 mg capsule,delayed release(DR/EC) 40 mg PO BID Qty: 60 0RF nicotine (polacrilex) 2 mg Gum 2 mg buccal Q2H PRN (Reason: Nicotine Cravings) Qty: 100 0RF tramadol 50 mg Tablet 50 mg PO Q6H PRN (Reason: Pain, Severe (Pain Scale 7-10)) Qty: 12 0RF folic acid 1 mg Tablet 1 mg PO DAILY Qty: 30 0RF zolpidem 5 mg Tablet 5 mg PO BEDTIME PRN (Reason: Insomnia) Qty: 7 0RF multivitamin [Daily-Talon] Tablet 1 tab PO DAILY Qty: 30 0RF thiamine HCl (vitamin B1) 100 mg tablet 100 mg PO DAILY Qty: 30 0RF omeprazole 20 mg capsule,delayed release(DR/EC) 20 mg PO BID Qty: 60 0RF Continued losartan 100 mg tablet 100 mg PO DAILY budesonide-formoterol [Symbicort] 160-4.5 mcg/actuation HFA aerosol inhaler 2 puff inhalation BID albuterol sulfate 90 mcg/actuation HFA aerosol inhaler 2 puff inhalation Q4-6H PRN (Reason: Shortness Of Breath) acetaminophen 325 mg Tablet 650 mg PO Q4H PRN (Reason: Pain (Scale Score 1-3)) Discontinued hydrochlorothiazide 25 mg tablet 25 mg PO DAILY Discharge Orders: Discharge Order (Routine); Ordered 05/27/23 Ordered By: Taya Carrillo Diet: Low salt diet Activity on Discharge: As tolerated Stand Alone Forms: Patient Portal Discharge page Care Plan Goals: Take omeprazole 20 mg twice daily daily Avoid NSAIDs, no aspirin, avoid smoking and alcohol Repeat upper endoscopy in October as scheduled Take vitamins as prescribed Health Concerns: Alcohol use Bilateral heel pain Plan of Treatment: Outpatient follow-up with PCP; call for appointment Outpatient follow-up with Dr. Beal from Gastroenterology for repeat upper endos copy in October Assessment: See Discharge Summary.
--- NOTE | 2023-05-27 12:16 | MHC.CM.PN ---
PT MEDICALLY CLEARED FRO DC HOME SELF CARE W/FAMILY FOR TRANSPORT
== END 2023-05-27 12:24 | disposition home or self-care (01) | DRG 378 ==
LOC: HO.ED 20:04 → HO.EDOVER 20:51 → HO.IMC 05-24 07:46
PROVIDERS: Hospitalist; Internal Medicine; Registered Nurse Emergency; Admitting Provider Internal Medicine; Emergency Provider Emergency Medicine Emergency Medical Services; Visit Provider Family Medicine
PROC: 0DJ08ZZ Inspection of Upper Intestinal Tract, Via Natural or Artificial Opening Endoscopic (ICD-10-PCS; CPT 43235; principal; 2023-05-24 10:40)
DX: K25.0 Acute gastric ulcer with hemorrhage (principal); D62 Acute posthemorrhagic anemia; Z68.43 Body mass index [BMI] 50.0-59.9, adult; K26.0 Acute duodenal ulcer with hemorrhage; E66.01 Morbid (severe) obesity due to excess calories; M77.32 Calcaneal spur, left foot; M77.31 Calcaneal spur, right foot; I10 Essential (primary) hypertension; G89.29 Other chronic pain; T39.395A Adverse effect of other nonsteroidal anti-inflammatory drugs [NSAID], initial encounter; J44.9 Chronic obstructive pulmonary disease, unspecified; F17.210 Nicotine dependence, cigarettes, uncomplicated; K22.70 Barrett's esophagus without dysplasia; F10.10 Alcohol abuse, uncomplicated; Z71.6 Tobacco abuse counseling; Z79.899 Other long term (current) drug therapy
CPT/HCPCS: 36415; 71046; 80048; 80053; 80143; 82272; 82607; 82746; 83735; 83880; 85014; 85018; 85025; 85027; 85610; 86850; 86900; 86901; 86923; 88305; 88313; 88342; 93306; 93970; 99285; C9113; J0171; J2704; J3010; J3411; P9016; Q9957

== ENCOUNTER 2023-05-23 20:43 | Outpatient (BNV) | payer MEDICARE, SELFPAY | END 2023-05-25 07:00 | PROVIDERS: Admitting Provider Internal Medicine; Emergency Provider Emergency Medicine Emergency Medical Services; Visit Provider Internal Medicine Cardiovascular Disease | DX: I35.8 Other nonrheumatic aortic valve disorders (principal); R60.0 Localized edema | CPT/HCPCS: 93306 ==

== ENCOUNTER → 2023-05-23 20:43 | Outpatient (BNV) | payer MEDICARE, SELFPAY | PROVIDERS: Admitting Provider Internal Medicine; Emergency Provider Emergency Medicine Emergency Medical Services; Visit Provider Internal Medicine | DX: K92.2 Gastrointestinal hemorrhage, unspecified (principal); D64.9 Anemia, unspecified; F10.90 Alcohol use, unspecified, uncomplicated; F17.210 Nicotine dependence, cigarettes, uncomplicated; K25.9 Gastric ulcer, unspecified as acute or chronic, without hemorrhage or perforation; K29.80 Duodenitis without bleeding; K26.9 Duodenal ulcer, unspecified as acute or chronic, without hemorrhage or perforation | CPT/HCPCS: 43239; 43255; 99223; 99233 ==

== ENCOUNTER → 2023-05-23 20:43 | Outpatient (BNV) | payer MEDICARE, SELFPAY | PROVIDERS: Admitting Provider Internal Medicine; Emergency Provider Emergency Medicine Emergency Medical Services; Visit Provider Internal Medicine | DX: F10.90 Alcohol use, unspecified, uncomplicated (principal); R19.5 Other fecal abnormalities; D64.9 Anemia, unspecified; K92.2 Gastrointestinal hemorrhage, unspecified; E66.01 Morbid (severe) obesity due to excess calories; Z68.43 Body mass index [BMI] 50.0-59.9, adult; I10 Essential (primary) hypertension; R60.0 Localized edema; F17.200 Nicotine dependence, unspecified, uncomplicated | CPT/HCPCS: 99223; 99233; 99239 ==

== ENCOUNTER 2023-11-10 08:16 | Day surgery (SDC) | payer MEDICARE, SELFPAY ==
--- NOTE | 2023-11-10 08:17 | MHC.SHP ---
Pre-Procedural Eval Section A - 24 Hr Update-Section A only Date of Service: 11/10/23 Section B - Complete if H&P > 30 days Chief Complaint: Peptic ulcer, site unspecified, unspecified as acu Details of Present Illness: PUD Edema of both legs Essential hypertension Obesity Present Medications: see Short Stay Collaborative assessment Allergies: Allergies Allergy/AdvReac Type Severity Reaction Status Date / Time lisinopril Allergy Rash Verified 05/23/23 17:32 From Augmentin Allergy Mild UNKNOWN Uncoded 05/23/23 17:32 Review of Systems Review of Systems Comment: Ten point ROS negative Exam Exam Comment: Gen appear: No acute distress HEENT: no icterus Chest: No overt resp distress Abd: soft, nontender, nondistended Psych: Stable affect, answering questions appropriately Neuro: A/Ox3 noted to move all extremities spontaneously Ext: no peripheral edema Plan Diagnosis/Plan: Unchanged I have reviewed the history and physical and performed a pertinent physical examination on my patient. No changes have occurred unless specified. Pt elder for interval EGD to document healing of ulcers Time Spent With Patient Time: Total time managing care of this patient today ____ minutes.
[2023-11-10 08:34] VITALS: BMI 48.4
--- NOTE | 2023-11-10 08:50 | P.CONAN_ITS ---
HPI - Anesthesia Eval Consult details Narrative: upper endo morbid obesity PMFSH Active Problems Active Problems: All Active Problems Heel pain (Acute) Morbid obesity (Acute) Acute blood loss anemia (Acute) Excessive use of nonsteroidal anti-inflammatory drug (NSAID) (Acute) Peptic ulcer disease (Acute) Tobacco use disorder (Acute) Alcohol use disorder (Acute) Dark stools (Acute) Anemia (Acute) Acute upper gastrointestinal bleeding (Acute) Edema of both legs (Acute) Essential hypertension (Acute) Obesity (Acute) Past Medical History Medical History Acquired lymphedema of lower extremity Vascular disease COPD (chronic obstructive pulmonary disease) Wound of left foot Bleeding ulcer Edema of both legs Essential hypertension Obesity Family History Family history of problems with anesthesia: No Surgical History Surgical History History of vasectomy History of Problems with Anesthesia: No Social History Social History Household Members: None Housing: Apartment Do you presently have visiting nurse or other home services: No Alcohol intake: current Alcohol intake frequency: 3 or more drinks per day Alcohol type: beer Patient Tobacco Use Status: Current everyday Tobacco user Tobacco use type: Cigarette Cigarettes Per Day: 10 Use of substances other than those prescribed or required for medical reasons: No Are you DNR?: No Advance Directives: No Advance Directives Information Provided: Yes Recently lost weight without trying: No How much weight loss: 34pounds or more Nutrition Risks: No Nutritional Risk Poor oral hygiene: No service: No Meds Allergies Allergy/AdvReac Type Severity Reaction Status Date / Time lisinopril Allergy Rash Verified 05/23/23 17:32 From Augmentin Allergy Mild UNKNOWN Uncoded 05/23/23 17:32 Active Medications: Current Medications Lactated Ringer's (Lr) 1,000 mls @ 80 mls/hr IVCONT .[id number] [facility] [place] Home Medications ?Medication ?Instructions ?Recorded ?Confirmed ?Last Taken ?Type budesonide-formoterol HFA 160 2 puff inhalation BID 05/23/23 05/23/23 Unknown History mcg-4.5 mcg/actuation aerosol inhaler (Symbicort) losartan 100 mg tablet 100 mg PO DAILY 05/23/23 05/23/23 Unknown History acetaminophen 325 mg tablet 650 mg PO Q4H PRN Pain (Scale 05/24/23 05/24/23 Unknown History Score 1-3) albuterol sulfate 90 mcg/actuation 2 puff inhalation Q4-6H PRN 05/24/23 05/24/23 Unknown History aerosol inhaler Shortness Of Breath Exam Height,Weight and Vital Signs: Height 5 ft 8 in Weight 144.299 kg Airway Mallampati Class: III TM Dist: >3cm Neck ROM: Limited Heart: rrr Lungs: cta Assessment and Plan Final Anesthetic Review Family History of Problems with Anesthesia: No History of Problems with Anesthesia: No NPO: Yes ASA Class: III Final Preanesthetic Review: No Changes in Pt Med Stat, Meds/Allgs Chart Reviewed, Consent Obtained/Reviewed and Anes Risks/Benef Reviewed Patient Risk: Intermediate Procedure Risk: Low Anesthetic Plan Anesthetic Plan: MAC: Disposition: Standard PACU
[2023-11-10 08:53] VITALS: BP 142/75; PULSE 87; RESP 16; TEMP 37.3; O2SAT 95
[2023-11-10] MEDS: Lactated Ringers 1,000 ML 80 ML IVCONT (09:04)
[2023-11-10] MEDS: Albuterol Sulfate (0.083%) 2.5 MG/3 ML VIAL.NEB INHALE (09:09)
[2023-11-10 09:11] VITALS: PULSE 87; RESP 18; O2SAT 97
--- NOTE | 2023-11-10 09:28 | P.OP_ITS ---
Operative Note Operative Note Date of Service: 11/10/23 Narrative: Procedure: Esophagogastroduodenoscopy Endoscopist: Louann Beal MD Indication: Hx of PUD Anesthesia Provider: Floyd Andrews CRNA Anesthesia Type: MAC ?? EGD Procedure:?? The procedure, indications, preparation and potential complications were reviewed with the patient, who indicated understanding and gave written informed consent to proceed. A physical exam was performed. The endoscope was introduced through the mouth, and advanced to the second part of duodenum. The mucosa was carefully examined on slow withdrawal of the endoscope. The patient tolerated the procedure well. There were no immediate complications.? ? EGD Findings:? * Esophagus:? Normal mucosa noted in the entire esophagus. The Z line was at 40 cm and irregular but less than 1 cm. * Stomach:? Normal gastric mucosa. Retroflexion was performed in the cardia. Random cold forceps biopsies were taken in the stomach. * Duodenum:? No erythema or ulceration was noted in the duodenum. A 1 cm subepithelial nodule was seen in the 2nd portion of duodenum opposing the major papilla. Cold forcep bite on bite biopsies were taken to reveal fatty tissue underneath. ? EGD Impressions:? * Irregular Z line < 1 cm * Normal gastric mucosa (biopsy) * Normal duodenal mucosa (biopsy) * Duodenal nodule-consistent with lipoma (biopsy) Recommendations:?? * Continue omeprazole 20 mg once daily every day * Repeat EGD for Mitchell's screening in 1 year
[2023-11-10 09:55] VITALS: BP 102/59; PULSE 97; RESP 16; TEMP 36.6; O2SAT 98
[2023-11-10 10:10] VITALS: BP 118/58; PULSE 98; RESP 16; TEMP 36.6; O2SAT 94
== END 2023-11-10 11:22 | disposition home or self-care (01) ==
PROVIDERS: PCP Internal Medicine; Visit Provider Internal Medicine
PROC: 0DJ08ZZ Inspection of Upper Intestinal Tract, Via Natural or Artificial Opening Endoscopic (ICD-10-PCS; CPT 43235; principal; 2023-11-10 10:00)
DX: K31.89 Other diseases of stomach and duodenum (principal); Z87.11 Personal history of peptic ulcer disease; K22.89 Other specified disease of esophagus; I10 Essential (primary) hypertension; R60.0 Localized edema; I89.0 Lymphedema, not elsewhere classified; E66.9 Obesity, unspecified; J44.9 Chronic obstructive pulmonary disease, unspecified; Z79.51 Long term (current) use of inhaled steroids; Z79.899 Other long term (current) drug therapy; Z88.8 Allergy status to other drugs, medicaments and biological substances; F17.210 Nicotine dependence, cigarettes, uncomplicated
CPT/HCPCS: 43239; 88305; 88313; 88342; 94640; J1100; J2704

== ENCOUNTER → 2023-11-10 08:16 | Outpatient (BNV) | payer MEDICARE, SELFPAY | PROVIDERS: PCP Internal Medicine; Visit Provider Internal Medicine | DX: K22.89 Other specified disease of esophagus (principal); K31.89 Other diseases of stomach and duodenum | CPT/HCPCS: 43239 ==

== ENCOUNTER 2024-03-02 13:00 | Outpatient (RCR) | payer MEDICARE, SELFPAY | END 2024-07-21 14:24 | disposition home or self-care (01) | LOC: HO.WCC 13:00 | PROVIDERS: PCP Internal Medicine; Visit Provider Surgery | DX: Z09 Encounter for follow-up examination after completed treatment for conditions other than malignant neoplasm (principal); I87.322 Chronic venous hypertension (idiopathic) with inflammation of left lower extremity; Q82.0 Hereditary lymphedema; I50.32 Chronic diastolic (congestive) heart failure; Z87.2 Personal history of diseases of the skin and subcutaneous tissue | CPT/HCPCS: 11042; 11045; 97597; 97602; 99212; 99213 ==